=== PATIENT | female | born 1930 | race Caucasian/White ===

== ENCOUNTER 2017-03-23 08:41 | Outpatient (CLI) | payer MEDICARE, BC ==
--- NOTE | 2017-03-23 10:32 | CT ---
CT ABDOMEN AND PELVIS WITH AND WITHOUT IV CONTRAST: Date: 03/23/17 HISTORY: Left lower quadrant pain and hematuria. FINDINGS: There are chronic changes in the lung bases. A 1.0 cm low density lesion is seen in the left lobe of the liver anteriorly, likely cyst. The spleen, pancreas, and adrenal glands are normal. Multiple gall stones are present. There are numerous calculi in the left kidney. There is left-sided hydronephrosis due to a 13.0 mm le ft UPJ calculus. There is periureteric inflammatory change at the UPJ. There are two calculi in the u rinary bladder close to the left UVJ, close to one another, measuring 6 and 5 mm, respectively. No ca lculi seen in the right kidney or the right ureter. No right-sided hydroureteronephrosis noted. There are low density lesions in the right kidney consistent with cysts. No free air, free fluid, or lymphadenopathy seen in the abdomen or pelvis. Multiple sigmoid diverticu la are present. There are vascular calcifications without evidence of aneurysmal dilatation of the ab dominal aorta. There are degenerative changes in the spine. IMPRESSION: 1. Obstructing 13.0 mm calculus at the left ureteropelvic junction. 2. Left renal and urinary bladder calculi. 3. Cholelithiasis. 4. Right renal cysts. 5. Probable liver cyst. 6. Sigmoid diverticulosis. POS: ALEX
[2017-03-23] MEDS ORDERED: Iopamidol 370 76% 100 ML VIAL ONE (16:52)
== END 2017-03-23 08:42 | disposition home or self-care (01) ==
LOC: CT 08:41
PROVIDERS: ATTEND Urology
DX: R31.0 Gross hematuria (principal); N20.0 Calculus of kidney; N21.0 Calculus in bladder; K80.20 Calculus of gallbladder without cholecystitis without obstruction; N28.1 Cyst of kidney, acquired; K57.30 Diverticulosis of large intestine without perforation or abscess without bleeding
CPT/HCPCS: 74178

== ENCOUNTER 2017-04-04 15:56 | Outpatient (CLI) | payer MEDICARE, BC ==
[2017-04-04 16:43] LABS: Hemoglobin 16.1 g/dL (12.0-16.0); Mean Corpuscular HGB CONC 33.1 g/dL (32.0-36.0); Mean Corpuscular Hemoglobin 33.6 pg (27.0-31.0); Platelet Count 130 thou/uL (130-400); RBC Distribution Width 12.6 % (11.5-14.5); Red Blood Cell (RBC) Count 4.79 mill/uL (4.20-5.40); White Blood Cell (WBC) Count 5.7 thou/uL (4.8-10.8)
[2017-04-04 16:50] LABS: INR-International Normal Ratio 1.1; PTT 27.5 SEC (22.9-36.1)
[2017-04-04 17:03] LABS: Anion Gap 14 mmol/L (10-20); BUN (Urea Nitrogen) 20 mg/dL (9.8-20.1); Calc. Creatinine Clearance 0 mL/min (70-130); Calcium 9.3 mg/dL (7.8-10.44); Carbon Dioxide 21 mmol/L (23-31); Chloride 108 mmol/L (98-107); Estimated GFR-MDRD 55; Glucose 88 mg/dL (83-110); Potassium 4.4 mmol/L (3.5-5.1); Sodium 139 mmol/L (136-145)
--- NOTE | 2017-04-05 11:49 | EKG ---
Test Reason : Blood Pressure : / mmHG Vent. Rate : 076 BPM Atrial Rate : 018 BPM P-R Int : 000 ms QRS Dur : 144 ms QT Int : 460 ms P-R-T Axes : 103 -76 092 degrees QTc Int : 517 ms Electronic ventricular pacemaker No previous ECGs available Confirmed by DR. Nessa BE (3) on 04/05/2017 11:49:22 AM Referred By: SEEMA Confirmed By:DR. Nessa BE
== END 2017-04-04 15:57 | disposition home or self-care (01) ==
LOC: LABBT 15:56
PROVIDERS: ATTEND Urology
DX: Z01.812 Encounter for preprocedural laboratory examination (principal); Z01.810 Encounter for preprocedural cardiovascular examination; N20.2 Calculus of kidney with calculus of ureter; R31.9 Hematuria, unspecified
CPT/HCPCS: 80048; 81001; 85027; 85610; 85730; 87086; 93005; 93010

== ENCOUNTER 2017-04-12 05:50 | Day surgery (SDC) | payer MEDICARE, BC ==
[2017-04-04 16:11] VITALS: BMI 28.0
[2017-04-12] MEDS ORDERED: Fentanyl 250 MCG/5 ML VIAL ONE (06:11)
[2017-04-12] MEDS ORDERED: Iothalamate Meglumine 60% 50 ML VIAL FS ONE ×2 (06:41→07:15)
[2017-04-12] MEDS ORDERED: Furosemide 20 MG/2 ML VIAL ONE (09:10)
--- NOTE | 2017-04-12 10:24 | RAD ---
RETROGRADE IVP: Comparison: None. FINDINGS: Two fluoroscopic images demonstrate a left sided ureteral stent. There is retrograde opacification of a normal appearing intra and extra renal collecting system. IMPRESSION: Fluoroscopy as above. POS: [facility]
[2017-04-12] MEDS ORDERED: Glycopyrrolate 0.2 MG/ML 5 ML SYRINGE ONE (14:02)
[2017-04-12] MEDS ORDERED: Propofol 200 MG/20 ML VIAL ONE (14:02)
[2017-04-12] MEDS ORDERED: Ondansetron HCl/PF 4 MG/2 ML Vial ONE (14:02)
[2017-04-12] MEDS ORDERED: Dexamethasone 20 MG/5 ML VIAL ONE (14:02)
[2017-04-12] MEDS ORDERED: PHENYLEPHRINE-NS 100 MCG/ML 10 ML SYRINGE ONE (14:02)
[2017-04-12] MEDS ORDERED: Lidocaine 1% PF 5 ML VIAL ONE (14:02)
--- NOTE | 2017-04-12 15:30 | OP ---
DATE OF SERVICE: 04/12/2017 PREOPERATIVE DIAGNOSES: Left distal ureteral stone, left renal stones. POSTOPERATIVE DIAGNOSES: Passed left distal ureteral stone, left renal stones. SURGEON: Vera Lopez M.D. ANESTHESIA: General with endotracheal tube. PROCEDURE: Cystoscopy, left retrograde pyelogram, left ureteroscopy, left pyeloscopy, holmium laser lithotripsy, stone basketing, stent placement 6 x 24. SPECIMENS: Stone from the renal pelvis. ESTIMATED BLOOD LOSS: Minimal. COMPLICATIONS: None. FINDINGS: The distal stone had actually passed and so at that time, I made the decision to pursue treatment of the renal pelvic stone, knowing that it could be ball-valving requiring intervention in the near futur, Given I did not have to spend any time getting the distal stone, I proceeded to the renal pelvic stone. DESCRIPTION OF THE PROCEDURE: The patient was brought into the room by Anesthesia, laid on the table in the supine position. After receiving general anesthetic, her legs placed in position and her perineum was prepped and draped in sterile fashion with the left leg lowered and the right leg elevated. The cystoscope was placed and the bladder inspected. The left UO was intubated, and instead of having resistance when the Pollack catheter was placed, it easily passed several centimeters into the distal ureter. Retrograde pyelogram was performed and revealed no proximal filling defects. It appeared the distal large 1.5 cm stone had passed, but I wanted to confirm this with ureteroscopy. I anticipated removing stone, so I dilated the left UO at this time to a level of 12mm mercury. Then the scope was removed leaving the wire in place. The rigid ureteroscope was used to go into the ureter and evaluate for stone. No stone was present and it was easily able to get up to the level of the proximal ureter. There was some tortuosity at this level. The rigid scope could not navigate into the renal pelvis, so at this point I switched to a flexible scope. I felt it was appropriate to pursue therapy on the 2 cm renal pelvic stone, given that the system was recently dilated and would accommodate this nicely. With the safety wire in place, a second wire was placed in order to place a ureteral sheath. This was done easily, and the extra wire was removed. The flexible ureteroscope was taken up to the renal pelvis easily, where the large, 2cm stone was noted. I used holmium laser lithotripsy for the rest of the case , which lasted approximately an hour and 15 minutes of lithotripsy and stone basketing/irrigation. There was still a good amount of stone fragment left at the end, but they were all relatively small. Knowing that she recently passed 1.5 cm stone, I did not want to prolong the case further. I had already, twice taken out large fragments that actually required removing the sheath as the sheath was too small for it to pass through. These were sent for specimen. Then a final time the renal pelvis was rinsed out under negative pressure to get all the stone debris out. A few more smaller fragments were brought through the sheath. The fragments remaining did appear to be passable. So at this time, the ureteral sheath was removed and the cystoscope was back fed over the wire. The wire actually coiled in the bladder, and I lost access; it was easily replaced. So then a 6 x 24 double-J was placed over a wire with good coil visualized in the renal pelvis via fluoroscopy and a good coil visualized in the bladder via cystoscopy. A string was left intact, so the scope was broken apart carefully drained and removed, keeping the string connected and then secured to the patient's inner thigh. Patient tolerated the procedure well and was then awakened and transferred to PACU in stable condition. JUD
== END 2017-04-12 12:02 | disposition home or self-care (01) ==
LOC: SDC 05:50
PROVIDERS: ATTEND Urology
PROC: 0TC48ZZ Extirpation of Matter from Left Kidney Pelvis, Via Natural or Artificial Opening Endoscopic (ICD-10-PCS; principal; 2017-04-12)
PROC: 0T778DZ Dilation of Left Ureter with Intraluminal Device, Via Natural or Artificial Opening Endoscopic (ICD-10-PCS; 2017-04-12)
DX: N20.0 Calculus of kidney (principal); N20.1 Calculus of ureter; R31.0 Gross hematuria; M10.9 Gout, unspecified; I10 Essential (primary) hypertension; Z86.73 Personal history of transient ischemic attack (TIA), and cerebral infarction without residual deficits; Z88.0 Allergy status to penicillin; Z79.899 Other long term (current) drug therapy
CPT/HCPCS: 74420; 82365; 88300; C1758; J0690; J1100; J1940; J2001; J2405; J2704; J3010; Q9961

== ENCOUNTER 2017-04-25 10:34 | Outpatient (CLI) | payer MEDICARE, BC ==
--- NOTE | 2017-04-25 12:25 | HP ---
DATE OF ADMISSION: 04/25/2017 HISTORY OF PRESENT ILLNESS: Ms. Olya Kingston is a very pleasant 86-year-old, accompanied by her duane odom, who [facility] for evaluation of a nonhealing surgical wound of the right anterior lower leg. The patient's daughter states that Ms. Kingston underwent biopsy of a lesion of th e right anterior lower leg by Dr. Tracy. She states that the patient subsequently underwent removal of the skin carcinoma in [place] in 01/2017, after the biopsy was positive for a malignancy of th e skin. The patient's daughter states that Ms. Kingston was recently seen by Dr. Tracy and prescribed an ointment "to dry out" the non-healing surgical wound of the right anterior lower leg subsequent t o skin carcinoma removal. The patient's daughter states that Ms. Kingston was discharged by Dr. Tracy after the ointment was prescribed. Ms. Kingston was subsequently seen by Dr. Flanagan and referred to [facility] for further evaluation and treatment. PAST MEDICAL HISTORY: 1. Hypertension. 2. CVA in 2011. 3. 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 4. Gout. PAST SURGICAL HISTORY: Pacemaker placement. MEDICATIONS: 1. Metoprolol. 2. Lisinopril. 3. Tylenol as needed. ALLERGIES: PENICILLIN. SOCIAL HISTORY: The patient admits to smoking approximately 2 cigarettes per day for 4 years. The [facility] states that she stopped smoking in 1955. The patient admits to the consumption of 2 Martinis per day "forever." FAMILY HISTORY: Family history is significant for coronary artery disease. The patient's brother wa s diagnosed with coronary artery disease. Family history is negative for diabetes mellitus. PHYSICAL EXAMINATION: VITAL SIGNS: Temperature 97.5, pulse 80, respirations 18, blood pressure 139/73. GENERAL: An 86-year-old female, sitting on table in examination room, in no acute distress. HEENT: Normocephalic, atraumatic. NECK: No nuchal rigidity. CHEST: Clear to auscultation. CARDIAC: Regular rate and rhythm. ABDOMEN: Soft. EXTREMITIES: An ulceration of the right anterior lower leg is present, which measures approximately 1.9 x 1.5 cm. Necrotic and nonviable tissue present within the wound margins was debrided with an ex cisional full-thickness debridement with the use of a curette. No purulent drainage is associated wi th the wound. No erythema of the skin surrounding the wound is present. No maceration of the skin o f the periwound is noted. A dorsalis pedis pulse is palpable on the right. No significant edema of the right foot or lower leg is present on exam today. Numerous varicosities are present over the rig ht foot and lower leg. Two lesions of the periwound are also noted on exam today, the appearance of which is consistent with skin carcinoma. ASSESSMENT AND PLAN: 1. Nonhealing surgical wound of right anterior lower leg as described above. Dressing changes of Xe roform gauze and bordered gauze will be initiated today. These dressing changes are to be performed on a daily basis after cleansing and irrigation. I have recommended follow up with Dr. Tracy for ev aluation of the 2 lesions of the periwound. I have explained to the patient that definitive treatmen t will be needed for these 2 lesions if a biopsy is obtained of either one which returns positive for carcinoma. I have also explained to the patient and her daughter that the nonhealing surgical wound may also be evaluated for the possibility of recurrent or persistent skin carcinoma instead of persi stent residual carcinoma. The patient and her daughter understand and are in agreement with the [facility] treatment plan. I will see Ms. Kingston again after evaluation by Dermatology. 2. Hypertension. 3. Cerebrovascular accident in 2011. 4. History of removal of multiple skin carcinomas. 5. Gout.
[2017-04-25] MEDS ORDERED: Lidocaine 2% Jelly 5 ML TUBE ONE (19:51)
[2017-04-25] MEDS ORDERED: Sodium Chloride 0.9% 15 ML NEB ONE (19:51)
== END 2017-04-25 10:35 | disposition home or self-care (01) ==
LOC: WCC 10:34
PROVIDERS: ATTEND Family Medicine
DX: T81.89XD Other complications of procedures, not elsewhere classified, subsequent encounter (principal); I10 Essential (primary) hypertension; M10.9 Gout, unspecified; Z86.73 Personal history of transient ischemic attack (TIA), and cerebral infarction without residual deficits; Z85.828 Personal history of other malignant neoplasm of skin
CPT/HCPCS: A4218

== ENCOUNTER 2017-05-09 11:30 | Outpatient (CLI) | payer MEDICARE, BC | END 2017-05-09 11:31 | disposition home or self-care (01) | LOC: BICRAD 11:30 | PROVIDERS: ATTEND Urology | DX: N20.0 Calculus of kidney (principal); K80.80 Other cholelithiasis without obstruction | CPT/HCPCS: 74018 ==

== ENCOUNTER 2017-07-13 13:05 | Outpatient (CLI) | payer MEDICARE, BC | END 2017-07-13 13:06 | disposition home or self-care (01) | LOC: BICULT 13:05 | PROVIDERS: ATTEND Urology | DX: N13.2 Hydronephrosis with renal and ureteral calculous obstruction (principal) | CPT/HCPCS: 76770 ==

== ENCOUNTER 2017-10-19 18:29 | Inpatient (IN) | payer MEDICARE, BC ==
--- NOTE | 2017-10-19 19:23 | CT ---
CT OF THE BRAIN WITHOUT CONTRAST: 10/19/17 COMPARISON: None. HISTORY: Found unresponsive. Concern for stroke. TECHNIQUE: Multiple contiguous axial images were obtained in a CT of the brain without contrast. FINDINGS: There are scattered hypodensities in the subcortical and periventricular white matter, likely seconda ry to small vessel ischemic disease. There may be slightly increased hypodensity in the left temporal lobe compared to the right. The left middle cerebral artery is hyperdense compared to the right but this could represent vascular calcifications. There is no evidence of hydrocephalus, intracranial hem orrhage or extra-axial fluid collection. The calvarium and overlying soft tissues are unremarkable. The visualized paranasal sinuses and masto id air cells are well aerated. IMPRESSION: Possible hyperdense left MCA sign with hypodensity in the left temporal lobe. This could represent an acute MCA distribution infarction. Alternatively, this could represent vascular calcifications. An M RI of the brain may be necessary for better evaluation. POS: R[facility]ETTA
--- NOTE | 2017-10-19 19:29 | CT ---
CT CERVICAL SPINE WITHOUT CONTRAST: 10/19/17 HISTORY: Patient found down and is unresponsive. COMPARISON: None. TECHNIQUE: CT cervical spine is performed without contrast. Reformatted images are submitted for interpretation. FINDINGS: There is no craniocervical dissociation. Lateral masses of C1 and C2 as well as the facets have appro priate articulation. There are extensive degenerative changes of the posterior elements. Mild straig htening of the normal cervical lordosis may be due to patient position, muscle spasm or a cervical co llar. Vertebral body height is maintained. There is no evidence of a fracture. Odontoid process is in tact. There are varying degrees of central canal stenosis and neural foraminal narrowing. Facet hypertrophy is noted at multiple levels which compound and accentuates the foraminal stenosis. Soft tissue neck structures are unremarkable. The lung apices and upper mediastinum are unremarkable. Asymmetric prominent right jugular foramen is nonspecific. Margins are well circumscribed. IMPRESSION: 1. No cervical spine fracture. 2. Degenerative changes of the cervical spine. 3. Asymmetrically prominent right jugular foramen which is presumed to be due to the jugular vei n. Additional etiologies causing asymmetric prominence cannot be excluded and nonemergent MRI can be performed if clinically warranted. Conversely, correlation with previous head CT or cervical spine CT would be beneficial. POS: PPP
[2017-10-19 19:32] LABS: #Lymphocytes 1.6 thou/uL (1.20-3.40); #Monocytes 0.5 thou/uL (0.11-0.59); #Neutrophils 2.7 thou/uL (1.40-6.50); %Basophils 0.2 % (0.0-1.0); %Eosinophils 0.5 % (0.0-10.0); %Lymphocytes 33.9 % (21.0-51.0); %Monocytes 9.4 % (0.0-10.0); %Neutrophils 56.1 % (42.0-75.0); Hemoglobin 12.6 g/dL (12.0-16.0); Mean Corpuscular HGB CONC 32.9 g/dL (32.0-36.0); Mean Corpuscular Hemoglobin 32.7 pg (27.0-31.0); Mean Corpuscular Volume 99.2 fL (78.0-98.0); Platelet Count 211 thou/uL (130-400); RBC Distribution Width 13.3 % (11.5-14.5); Red Blood Cell (RBC) Count 3.84 mill/uL (4.20-5.40); White Blood Cell (WBC) Count 4.8 thou/uL (4.8-10.8)
--- NOTE | 2017-10-19 19:45 | CT ---
CTA OF THE HEAD AND NECK WELL CT PERFUSION 10/19/17 HISTORY: Altered mental status with left MCA distribution stroke-like symptoms and complete paralysis on the r ight side of the body. TECHNIQUE: 1. Multiple contiguous axial images were obtained in a CTA of the neck with contrast. 3D sagitta l and coronal MIP reformats were performed. 2. Multiple contiguous axial images were obtained in a CTA of the head with contrast. 3D sagitta l and coronal MIP reformats were performed. 3. A CT perfusion was performed. FINDINGS: CTA NECK: Emphysematous changes are seen in the lung apices. Atherosclerotic calcifications are seen in the aor ta. There are small bilateral pleural effusions. No soft tissue mass is seen in the neck. No cervical adenopathy is seen. Both subclavian arteries are patent without significant atherosclerotic disease. The bilateral common carotid arteries are normal in appearance without significant atherosclerotic disease. The common carotid arteries branch into normal caliber internal and external carotid arteries . No si gnificant stenosis per NASCET criteria is seen in either internal carotid artery. The carotid arterie s are tortuous bilaterally. The left vertebral artery is dominant. Both vertebral arteries are patent. The vertebral arteries for m a normal appearing basilar artery. CTA HEAD: There is abrupt termination of flow in the M1 segment of the left middle cerebral artery. There is de creased peripheral flow seen in the left MCA distribution compared to the right. No abnormality is se en in the right middle cerebral artery or in the anterior cerebral arteries. The vertebral arteries form a normal appearing basilar artery. The posterior cerebral arteries and ce rebellar arteries are patent. There is no evidence of aneurysmal dilatation, focal stenosis, or occlu pooja in the posterior circulation. CT PERFUSION: There is abnormal decreased blood volume and blood flow in the left MCA distribution. There is increa sed mean transit time. There is not significant preservation and blood volume to suggest that a signi ficant penumbra is present and this likely is a large MCA distribution evolving infarction. IMPRESSION: 1. No significant CTA neck abnormality. 2. Acute thrombus in the M1 segment of the left middle cerebral artery. 3. Evolving infarction in the left MCA distribution without significant penumbra. Dr. Domínguez notified of the findings at 7:19 p.m. on 10/19/17. POS: [facility]
[2017-10-19 19:52] LABS: ALT (SGPT) 10 U/L (8-55); AST (SGOT) 25 U/L (5-34); Albumin 3.4 g/dL (3.4-4.8); Alkaline Phosphatase 83 U/L (40-150); Anion Gap 13 mmol/L (10-20); BUN (Urea Nitrogen) 11 mg/dL (9.8-20.1); Bilirubin, Total 1.2 mg/dL (0.2-1.2); Calc. Creatinine Clearance 0 mL/min (70-130); Carbon Dioxide 22 mmol/L (23-31); Chloride 103 mmol/L (98-107); Estimated GFR-MDRD 72; Globulin 2.9 g/dL (2.4-3.5); Glucose 107 mg/dL (83-110); Potassium 4.4 mmol/L (3.5-5.1); Protein, Total 6.3 g/dL (6.0-8.3); Sodium 134 mmol/L (136-145)
[2017-10-19 19:57] LABS: CKMB 1.1 ng/mL (0-6.6); Troponin I Less than 0.010 ng/mL (< 0.028)
[2017-10-19 20:00] LABS: Bilirubin Negative (Negative); Blood, Urine Large (Negative); Clarity CLEAR (Clear); Glucose, Urine (Dipstick) Negative (Negative); Leukocyte Negative (Negative); Nitrite Negative (Negative); Protein, Urine (Dipstick) 30 mg/dL (Neg-Trace); Specific Gravity, Urine 1.038 (1.002-1.036); Urobilinogen 0.2 mg/dL (0.2-1.0)
[2017-10-19 20:03] LABS: Bacteria/HPF None Seen HPF (None Seen); Hyaline Casts/LPF 4-6 HYALINE CAST LPF (0-3 Hyaline); Pathc Cast-AUWi Flag 1.45 (0-2.49); Squamous Epithelial 0-3 HPF (0-3); WBC/HPF 0-3 HPF (0-3)
[2017-10-19 20:04] LABS: Yeast-AUWi Flag 84.6 (0-25.0)
[2017-10-19 20:11] LABS: Renal Epithelial None Seen HPF (0-3); Transitional Epithelial NONE SEEN HPF (0-3); Yeast-All Forms None Seen HPF (None Seen)
[2017-10-19] MEDS ORDERED: hydrALAZINE 20 MG/ML VIAL SLOW IVP PRN (21:25)
[2017-10-19] MEDS ORDERED: Acetaminophen 650 MG Suppository PR PRN (21:25)
[2017-10-19] MEDS ORDERED: Ondansetron HCl/PF 4 MG/2 ML Vial IVP PRN (21:25)
[2017-10-19 22:47] LABS: Troponin I Less than 0.010 ng/mL (< 0.028)
[2017-10-20 02:25] LABS: Troponin I Less than 0.010 ng/mL (< 0.028)
--- NOTE | 2017-10-20 02:46 | HP ---
TIME OF EVALUATION: 8:35 p.m. PRIMARY CARE PHYSICIAN: Dr. Shari Flanagan. CODE STATUS: DNR/DNI. This has been verified with the daughter who is a power of engineering operator and daughter's . She has stated that on previous admission, patient has stated that she does not want to be intubated and not to have any aggressive measures, no surgeries. She does agree for her mom to have medical treatment. CHIEF COMPLAINT: The patient found nonverbal with left-sided weakness. HISTORY OF PRESENT ILLNESS: This is an 87-year-old female patient with past medical history of previous stroke, also having history of hypertension, peripheral vascular disease, came to the hospital after having a new-onset left- sided weakness and aphasia. Patient was found nonverbal. Prior to this episode , the patient has had a stroke, but had no sequela. The patient was able to function and do her activities of daily living to date. The symptoms are severe , with no clear triggers, no alleviating factors. The patient follows commands ; however, she is unable to express their words that she wanted to say. REVIEW OF SYSTEMS: Unable to obtain. The patient is aphasic. PAST MEDICAL HISTORY: The patient has a history of colon dysfunction, cataracts , frequent diarrhea, hypertension, previous stroke. PAST SURGICAL HISTORY: Hysterectomy. FAMILY HISTORY: Reviewed and non contributory for current presentation. PSYCHIATRIC HISTORY: No previous psychiatric history. SOCIAL HISTORY: Former tobacco user, smoker of cigarettes, quit more than 10 years ago. No alcohol, no drugs. KNOWN ALLERGIES: PENICILLIN. REPORTED MEDICATIONS: Aspirin, lisinopril, metoprolol. PHYSICAL EXAMINATION: VITAL SIGNS: On presentation, heart rate 87, respiratory rate 24, temperature 97.6, pain 0/10, oxygen saturation 94% on room air, blood pressure was 169/76. GENERAL APPEARANCE: The patient is alert, nonverbal, in no any acute distress. HEENT: Eyes: Normal conjunctivae. Moist oral mucosa, anicteric. NECK: No JVD. RESPIRATORY: Bilateral air entry. No rales, no wheezing. Symmetric expansion. CARDIOVASCULAR: Normal rate, regular rhythm. No murmurs, no gallop. EXTREMITIES: No edema. ABDOMEN: Soft, normal bowel sounds. MUSCULOSKELETAL: Baseline range of motion and strength. No tenderness. Peripheral pulses are present. Capillary refill seems to be intact. SKIN: Warm and intact. No pallor, no rash, no redness. NEUROLOGIC: The patient has aphasia, left-sided weakness, strength is almost 1/ 5, correction is in the right side. Patient follows commands and seems to be coherent when listening to conversation, but is unable to express the words are coming to her mind. PSYCHIATRIC: Unable to explore. Patient is not in any distress. DIAGNOSTIC DATA: EKG was reviewed. The patient has undetermined rhythm that seems to be alternation between sinus rhythm and paced rhythm with a ventricular rate of 94, QRS of 70, QT corrected 477, some T-wave inversion in V3. Brain CT was done: The patient had possible hyperdense left MCA sign with hyperdensity in the left temporal lobe, this could represent an acute MCA distribution infarct. Alternatively, this could represent vascular calcifications. An MRI of the brain to be necessary for better evaluation. Cervical spine CT was done and the patient had no cervical spine fractures, degenerative changes of the cervical spine. Asymmetrical prominent right jugular foramen which is presumed to be due to the jugular vein. Additional etiologies causing asymmetric prominence, cannot be excluded and nonemergent MRI can be performed if clinically warranted correlation with previous head CT. Her cervical spine CT could be beneficial. CT angiogram showed no significant CTA neck abnormalities, acute thrombosis of the M1 segment of the left middle cerebral artery, evolving infarction of the left MCA distribution without significant new penumbra. LABORATORY DATA: Reviewed. The patient has a white count of 4.8, hemoglobin 12.6, MCV 99.2, platelet count 211,000. Sodium 134, potassium 4.4, chloride 103 , carbon dioxide 22, anion gap 13, BUN 11, creatinine 0.7, GFR 72, glucose 107, calcium 9.0, total bilirubin 1.2, AST 25, ALT 10. Troponin was negative x2. Urine was negative for infection. ASSESSMENT AND PLAN: The patient was placed in the hospital due to the following medical problems: 1. Acute left middle cerebral artery stroke, seen on the CAT scan, with total right-sided weakness and aphasia. The patient is unable to get an MRI since the patient has a pacemaker, we will consult Neurology. We will complete the stroke protocol. We will follow recommendations from Neurology for further management. 2. Uncontrolled hypertension. We will reconcile home medications, p.r.n. medication for optimal control with permissive hypertension given new stroke. 3. Hyponatremia, sodium 134. This is minimal, no need for any acute intervention. We will monitor. We will treat accordingly. 4. Mild anion gap metabolic acidosis, this is mild. No need for any acute intervention. We will monitor. We will treat accordingly. 5. Deep venous thrombosis prophylaxis. 6. History of pacemaker placement. It seems like occasionally the rhythm is paced. . MTDD
[2017-10-20 04:16] LABS: #Eosinphils 0.1 thou/uL (0.0-0.7); #Lymphocytes 2.3 thou/uL (1.20-3.40); #Monocytes 0.7 thou/uL (0.11-0.59); #Neutrophils 4.8 thou/uL (1.40-6.50); %Basophils 0.3 % (0.0-1.0); %Eosinophils 0.8 % (0.0-10.0); %Lymphocytes 29.1 % (21.0-51.0); %Monocytes 8.8 % (0.0-10.0); Hemoglobin 12.4 g/dL (12.0-16.0); Mean Corpuscular HGB CONC 33.3 g/dL (32.0-36.0); Mean Corpuscular Hemoglobin 32.9 pg (27.0-31.0); Mean Platelet Volume 10.3 fL (7.4-10.4); Platelet Count 209 thou/uL (130-400); RBC Distribution Width 13.4 % (11.5-14.5); Red Blood Cell (RBC) Count 3.76 mill/uL (4.20-5.40); White Blood Cell (WBC) Count 7.8 thou/uL (4.8-10.8)
[2017-10-20 04:31] LABS: Anion Gap 15 mmol/L (10-20); BUN (Urea Nitrogen) 9 mg/dL (9.8-20.1); Calc. Creatinine Clearance 58 mL/min (70-130); Carbon Dioxide 20 mmol/L (23-31); Cardiac Risk 2.4 (Less than 4.5); Chloride 105 mmol/L (98-107); Cholesterol 136 mg/dl (< 200 Desired); Estimated GFR-MDRD 78; Glucose 102 mg/dL (83-110); HDL Cholesterol 56 mg/dL (>60 Neg Risk); LDL Cholesterol, Calculated 66 mg/dL; Potassium 3.8 mmol/L (3.5-5.1); Sodium 136 mmol/L (136-145); Triglycerides 70 mg/dL (Less than 150)
--- NOTE | 2017-10-20 08:34 | PDOC.PN ---
- Subjective Encounter Start Date: 10/20/17 Encounter Start Time: 08:33 -: non-verbal Subjective: does close eyes, lift R arm to directions - Objective Resuscitation Status: Resuscitation Status DNR:Do Not Resuscitate MAR Reviewed: Yes Vital Signs & Weight: Vital Signs (12 hours) Temp Pulse Resp BP Pulse Ox 10/20/17 07:39 97.8 F 80 14 162/78 H 93 L 10/20/17 04:00 98.1 F 78 20 176/76 H 94 L 10/20/17 00:00 93 L 10/19/17 23:55 97.6 F 83 19 184/84 H 93 L 10/19/17 22:15 98.2 F 80 16 166/93 H 94 L Weight Weight 148 lb 6.4 oz Result Diagrams: 10/20/17 01:43 10/20/17 01:43 Additional Labs: Accuchecks 10/19/17 18:33 POC Glucose 109 Phys Exam - Physical Examination Neck: no JVD Respiratory: clear to auscultation bilateral Cardiovascular: RRR, no significant murmur Gastrointestinal: soft, non-tender, positive bowel sounds Musculoskeletal: no edema aphasia, flaccid R hemiplegia Dx/Plan (1) Cerebrovascular accident (CVA) involving left cerebral hemisphere Code(s): I63.9 - CEREBRAL INFARCTION, UNSPECIFIED Status: Acute (2) Hemiplegia affecting right dominant side Code(s): G81.91 - HEMIPLEGIA, UNSPECIFIED AFFECTING RIGHT DOMINANT SIDE Status : Acute Qualifiers: Hemiplegia type: flaccid Hemiplegia etiology: late effect of cerebrovascular disease Cerebrovascular disease type: cerebral infarction Qualified Code(s): I69.351 - Hemiplegia and hemiparesis following cerebral infarction affecting right dominant side (3) HTN (hypertension) Code(s): I10 - ESSENTIAL (PRIMARY) HYPERTENSION Status: Chronic Qualifiers: Hypertension type: essential hypertension Qualified Code(s): I10 - Essential (primary) hypertension (4) Pacemaker Code(s): Z95.0 - PRESENCE OF CARDIAC PACEMAKER Status: Chronic - Plan PT/OT cont asa pr -: prn iv meds for BP control -: speech eval, PEG? -: pronosis for recovery poor * .
[2017-10-20] MEDS ORDERED: Enoxaparin Sodium 40 MG/0.4 ML SYRINGE SC SCH (09:00)
[2017-10-20] MEDS: D5 1/2 NS w/20 mEq KCL 1,000 ML IV SCH ×2 (09:43→20:04)
[2017-10-20] MEDS: Aspirin 300 MG Suppository PR SCH (09:43)
[2017-10-20] MEDS: Enoxaparin Sodium 40 MG/0.4 ML SYRINGE SC SCH (09:43)
--- NOTE | 2017-10-21 00:31 | CON ---
DATE OF CONSULTATION: 10/20/2017 CONSULTING PHYSICIAN: Hospitalist Service. IMPRESSION: 1. Left middle cerebral artery stroke with resultant expressive aphasia and right hemiparesis. 2. Atrial fibrillation and probable cardioembolic event. 3. Pacemaker. PLAN: 1. Continue aspirin. 2. Swallow assessment and decide whether a feeding tube is necessary. 3. Probable halfway transfer. HISTORY OF PRESENT ILLNESS: Ms. Kingston is an 87-year-old woman, who came in with acute stroke sympto ms. Her CTA revealed a clot in the M1 segment on the left. Her vital signs have been stable. Her l aboratory studies were all in normal range. She is unable to give me any history. No family was vitor ilable to give me any other details. EKG showed a paced rhythm and atrial fibrillation. ALLERGIES: PENICILLIN. SOCIAL HISTORY: Unknown. FAMILY HISTORY: Unknown. REVIEW OF SYSTEMS: The patient is DNR. PHYSICAL EXAMINATION: GENERAL: She is a well-nourished elderly lady lying in bed in no acute distress. VITAL SIGNS: Blood pressure 180/61, pulse 78, respirations 24, temperature 97.7. HEENT: Pupils equal. Conjunctivae clear. Oropharynx clear. NECK: Supple. EXTREMITIES: Mild edema is present. NEUROLOGIC: She is awake and cooperative. She was able to follow simple commands. She had dense ex pressive aphasia. There is very subtle weakness of the right face. Could not get her to move the ri ght arm or leg independently. She moves the left side spontaneously. No abnormal movements were see n. Gait was not testable. SUMMARY: This is an unfortunate elderly lady who suffered a fairly significant stroke in the left an terior distribution, probably cardioembolic in origin. I agree with aspirin for now and determine wh ether a feeding tube is going to be pursued. Long-term anticoagulation would be a consideration as grayson warner
[2017-10-21] MEDS: D5 1/2 NS w/20 mEq KCL 1,000 ML IV SCH ×2 (05:21→18:00)
--- NOTE | 2017-10-21 07:34 | PDOC.PN ---
- Subjective Encounter Start Date: 10/21/17 Encounter Start Time: 07:33 Subjective: attempting to verbally respond, - Objective Resuscitation Status: Resuscitation Status DNR:Do Not Resuscitate MAR Reviewed: Yes Vital Signs & Weight: Vital Signs (12 hours) Temp Pulse Resp BP Pulse Ox 10/21/17 04:00 98.0 F 18 169/79 H 96 10/21/17 00:00 98.0 F 74 19 179/85 H 93 L 10/20/17 20:42 94 L 10/20/17 19:49 97.6 F 79 18 168/80 H 94 L Weight Admit Weight 148 lb 6.4 oz Weight 148 lb I&O: 10/20/17 10/21/17 10/22/17 06:59 06:59 06:59 Intake Total 1275 Balance 1275 Result Diagrams: 10/20/17 01:43 10/20/17 01:43 Phys Exam - Physical Examination Neck: no JVD Respiratory: clear to auscultation bilateral Cardiovascular: RRR, no significant murmur Gastrointestinal: soft, positive bowel sounds Musculoskeletal: no edema Dx/Plan (1) Cerebrovascular accident (CVA) involving left cerebral hemisphere Code(s): I63.9 - CEREBRAL INFARCTION, UNSPECIFIED Status: Acute (2) Hemiplegia affecting right dominant side Code(s): G81.91 - HEMIPLEGIA, UNSPECIFIED AFFECTING RIGHT DOMINANT SIDE Status : Acute Qualifiers: Hemiplegia type: flaccid Hemiplegia etiology: late effect of cerebrovascular disease Cerebrovascular disease type: cerebral infarction Qualified Code(s): I69.351 - Hemiplegia and hemiparesis following cerebral infarction affecting right dominant side (3) HTN (hypertension) Code(s): I10 - ESSENTIAL (PRIMARY) HYPERTENSION Status: Chronic Qualifiers: Hypertension type: essential hypertension Qualified Code(s): I10 - Essential (primary) hypertension (4) Pacemaker Code(s): Z95.0 - PRESENCE OF CARDIAC PACEMAKER Status: Chronic - Plan PT/OT cont ASA pr -: await swallowing eval -: cont iv fluids -: antihypertensives iv prn * .
[2017-10-21] MEDS: Aspirin 300 MG Suppository PR SCH (09:24)
[2017-10-21] MEDS: Enoxaparin Sodium 40 MG/0.4 ML SYRINGE SC SCH (09:24)
--- NOTE | 2017-10-21 15:48 | RAD ---
MODIFIED BARIUM SWALLOW: DATE: 10/21/17. HISTORY: Dysphagia following cerebral infarction. FINDINGS: This examination was performed in conjunction with speech pathology. Thin and thick liquid barium co nsistencies were administered during the exam. The patient does demonstrate normal formation of the bolus into the posterior pharynx. The episodes of premature spill of contrast in the vallecula were noted prior to initiation of swallowing mechanism. The patient demonstrated a couple of episodes of penetration with pudding consistent barium, and the patient demonstrated mony aspiration with honey consistency barium with an appropriate cough reflex elicited. IMPRESSION: Mony aspiration with honey consistency barium. POS: RENETTA
--- NOTE | 2017-10-21 22:18 | CON ---
DATE OF CONSULTATION: 10/21/2017 REASON FOR CONSULTATION: Requesting PEG placement. REQUESTING PHYSICIAN: Skyler Holcomb M.D. HISTORY OF PRESENT ILLNESS: Olya Kingston is an 87-year-old woman who was admitted to the hospital 2 d ays ago with acute left MCA distribution stroke resulting in expressive aphasia, right-sided hemipare sis and it appears oropharyngeal dysphagia with high risk for aspiration. She has a prior history of peripheral vascular disease and a prior stroke. She has had a hysterectomy, but no other abdominal surgeries. Her family tells me that just a couple of months ago in [place], she had an episode w hat sounds like ischemic colitis, which was managed nonoperatively, and from which she recovered fair ly well, able to progress to a normal diet prior to this presentation, but at any rate, she was admit elie to the hospital 2 days ago with expressive aphasia and right hemiparesis and was found to have a thrombus in the left cerebral hemisphere. She is also found to be in paced atrial fibrillation earli er today, modified barium swallow was performed which demonstrated mony aspiration with honey consis tencies and so PEG tube has been requested. The patient's family is on board with the idea. REVIEW OF SYSTEMS: Unable to obtain from the patient due to her expressive aphasia. PAST MEDICAL HISTORY: CVA; hypertension; peripheral vascular disease; hysterectomy; ischemic colitis , earlier this year 2017; pacemaker placement; atrial fibrillation. ALLERGIES: PENICILLIN. OUTPATIENT MEDICATIONS: Aspirin, lisinopril, and metoprolol. SOCIAL HISTORY: She is a former smoker. No alcohol or drug abuse. FAMILY HISTORY: Noncontributory. PHYSICAL EXAMINATION: VITAL SIGNS: Temperature 97.8, pulse 88, blood pressure 180/82, 94% oxygen saturation on room air. GENERAL: An 87-year-old woman lying in bed comfortably in no distress. MENTAL: She is alert. She responds to voice. She attempts to answer questions, but due to expressi ve aphasia, it is unclear what her level of understanding is. EYES: No scleral icterus. Extraocular movements intact. SKIN: No jaundice. No scars to the left upper quadrant of the abdomen. ENT: Mucous membranes moist, no oral lesions. LYMPH: No submandibular, supraclavicular lymphadenopathy. THYROID: Nontender to palpation. HEART: Regular rate and rhythm. LUNGS: Clear to auscultation bilaterally. ABDOMEN: Nondistended. Bowel sounds present, soft, nontender to palpation throughout. No scars in the left upper quadrant. EXTREMITIES: No peripheral edema. VESSELS: Radial pulses 2+ bilaterally. NEUROLOGICAL: She has right-sided hemiparesis and expressive aphasia. LABORATORY STUDIES: WBC 7.8, hemoglobin 12.4, platelets 209. Sodium 136, potassium 3.8, BUN 9, crea tinine 0.71. Troponin negative x3. IMAGING STUDIES: Modified barium swallow from earlier today demonstrated mony aspiration with honey consistency. CTA of the head and neck from presentation two days ago demonstrated acute thrombus in the M1 segment of the left middle cerebral artery and evolving infarction in the left MCA distributi on without significant penumbra. ASSESSMENT AND PLAN: Oropharyngeal dysphagia, following stroke. The patient has clear evidence of a spiration with honey consistencies on a modified barium swallow. I had a long discussion with the haleigh pena regarding the potential benefits and also the risks of PEG tube placement. I do feel this is ce rtainly a reasonable option for delivery of nutrition, fluids and medications. I see no contraindica tion to going forward. We did discuss risks which would include infection, bleeding, perforated visc us, surgery or even . In the end, everyone is in agreement. We will plan for PEG tube placemen t tomorrow morning. We will hold her morning Lovenox dose in anticipation of the procedure. Thank you for the consultation. Please call any time with questions or concerns.
[2017-10-22] MEDS: D5 1/2 NS w/20 mEq KCL 1,000 ML IV SCH ×2 (04:13→17:39)
[2017-10-22] MEDS: Aspirin 300 MG Suppository PR SCH (09:22)
[2017-10-22] MEDS ORDERED: Levofloxacin 500 mg/D5W 100 ml Premix Bag ONE (09:50)
[2017-10-22] MEDS ORDERED: Clindamycin/D5W 900 mg/50 ml Premix Bag ONE (09:51)
[2017-10-22] MEDS ORDERED: Promethazine HCl 25 MG/ML VIAL SLOW IVP PRN (10:15)
[2017-10-22] MEDS ORDERED: Ondansetron HCl/PF 4 MG/2 ML Vial IVP PRN (10:15)
[2017-10-22] MEDS ORDERED: Promethazine HCl 25 MG/ML VIAL IM PRN (10:15)
--- NOTE | 2017-10-22 12:44 | OP ---
DATE OF PROCEDURE: 10/22/2017 GASTROINTESTINAL ENDOSCOPY NOTE SURGEON: Lambert Duncan M.D. RESIDENTIAL FRAMING CARPENTER SURGEON: None. PROCEDURE PERFORMED: Esophagogastroduodenoscopy with PEG tube placement. INDICATION: Oropharyngeal dysphagia following stroke. MEDICATIONS: 1. See anesthesia record. 2. Clindamycin 900 mg IV plus levofloxacin 500 mg IV for enriqueta-procedural antibiotic prophylaxis. FINDINGS: After discussion of the risks, benefits and alternatives of the procedure, informed consen t was obtained and witnessed. Pre-endoscopic cardiopulmonary examination was satisfactory. Timeout was performed before sedation was achieved. Sedation was achieved with anesthesia assistance in the endoscopy unit. The patient was placed in the supine position. A Pentax adult upper endoscope was p laced into the oropharynx and passed through the cricopharyngeus under direct visualization. The eso phageal mucosa appeared normal throughout. The endoscope was advanced into the stomach. Forward and retroflexed views of the entire gastric mucosa were obtained. The gastric mucosa appeared normal. The endoscope was advanced through the pylorus and into the first and second portions of the duodenum . In the duodenal bulb and second portion of the duodenum that, there was erosive duodenitis. There were multiple very small superficial clean based erosions with no evidence of bleeding. The endosco pe was withdrawn back into the stomach. Using one-to-one pressure and transillumination methods, a s uitable site for PEG tube placement was located in the left upper quadrant. The site was prepped and draped in a sterile fashion and then anesthetized with subcutaneous lidocaine. A 1 cm vertical inci pooja was made. The introducer needle and catheter were then introduced transcutaneously into the gas tric lumen. The wire was passed through the catheter and grasped with the snare and removed out of t he patient's mouth. A 20-Haitian traction PEG tube was then pulled into place without difficulty in t he standard fashion. The endoscope was passed back down into the stomach for examination of the inte rnal bumper which appeared to be in good position. The external bumper clamp and external ports were all affixed to the PEG tube. The external bumper was affixed at a distance of 2 cm. There was mini mal bleeding from the site during the procedure, which had slowed down. At the end, the procedure wa s then completed. The patient tolerated the procedure well. There were no immediate post-procedure complications. IMPRESSION: 1. Successful placement of 20-Haitian traction PEG tube to the left upper quadrant, with external bum per at 2 cm. 2. Erosive duodenitis without bleeding. RECOMMENDATIONS: 1. May use the PEG tube for medications now. 2. May use the PEG tube for feeds in 4 hours. 3. Flush tube regularly. 4. Daily PPI for 1 month. 5. I will plan to come by tomorrow to check on the PEG site and likely loosen the external bumper.
[2017-10-22] MEDS ORDERED: Clindamycin/D5W 900 MG in Premix Bag 1 BAG IVPB SCH (13:30)
[2017-10-22] MEDS ORDERED: Lidocaine 1% PF 5 ML VIAL ONE (14:49)
[2017-10-22] MEDS ORDERED: PROPOFOL 200 MG/20 ML VIAL ONE (14:49)
--- NOTE | 2017-10-22 16:08 | PDOC.PN ---
- Subjective Encounter Start Date: 10/22/17 Encounter Start Time: 16:06 -: old records requested/rev Subjective: s/p PEG placement.groggy and mumbles responses -: no acute vents ON - Objective Resuscitation Status: Resuscitation Status DNR:Do Not Resuscitate MAR Reviewed: Yes Vital Signs & Weight: Vital Signs (12 hours) Temp Pulse Resp BP Pulse Ox 10/22/17 11:45 97.9 F 72 20 165/74 H 92 L 10/22/17 07:48 98.7 F 80 16 144/90 H 95 Weight Admit Weight 148 lb 6.4 oz Weight 142 lb 3.2 oz I&O: 10/21/17 10/22/17 10/23/17 06:59 06:59 06:59 Intake Total 1275 988 Balance 1275 988 Result Diagrams: 10/20/17 01:43 10/20/17 01:43 Phys Exam - Physical Examination Constitutional: NAD HEENT: PERRLA, moist MMs, sclera anicteric, oral pharynx no lesions Neck: no JVD Respiratory: no wheezing, no rales, no rhonchi Cardiovascular: no significant murmur, irregular Gastrointestinal: soft, non-tender, no distention Musculoskeletal: no edema, pulses present right hemiparesis Psychiatric: normal affect Skin: no rash Dx/Plan (1) Cerebrovascular accident (CVA) involving left cerebral hemisphere Code(s): I63.9 - CEREBRAL INFARCTION, UNSPECIFIED Status: Acute Comment: Chelsi embolic (2) Aphasia as late effect of cerebrovascular accident Code(s): I69.320 - APHASIA FOLLOWING CEREBRAL INFARCTION Status: Acute (3) Dysphagia as late effect of cerebrovascular accident (CVA) Code(s): I69.391 - DYSPHAGIA FOLLOWING CEREBRAL INFARCTION Status: Acute (4) Hemiplegia affecting right dominant side Code(s): G81.91 - HEMIPLEGIA, UNSPECIFIED AFFECTING RIGHT DOMINANT SIDE Status : Acute Qualifiers: Hemiplegia type: flaccid Hemiplegia etiology: late effect of cerebrovascular disease Cerebrovascular disease type: cerebral infarction Qualified Code(s): I69.351 - Hemiplegia and hemiparesis following cerebral infarction affecting right dominant side (5) HTN (hypertension) Code(s): I10 - ESSENTIAL (PRIMARY) HYPERTENSION Status: Chronic Qualifiers: Hypertension type: essential hypertension Qualified Code(s): I10 - Essential (primary) hypertension (6) Pacemaker Code(s): Z95.0 - PRESENCE OF CARDIAC PACEMAKER Status: Chronic (7) Chronic atrial fibrillation Code(s): I48.2 - CHRONIC ATRIAL FIBRILLATION Status: Chronic - Plan PT/OT, speech therapy, out of bed/ambulate, DVT proph w/SCDs discussed w neurology regarding oral anticoag. -: will choose ASA given advanced age and bleeding risk. -: TF in next few hours once PEG ready to use. -: start PO meds via peg.HD stable -: Rehab placement when accepted * . Review of Systems - Review of Systems Other: Limited due to somnolence and expressive aphasia - Medications/Allergies Allergies/Adverse Reactions: Allergies Allergy/AdvReac Type Severity Reaction Status Date / Time Penicillins Allergy Verified 04/04/17 16:10 Medications: Current Medications Acetaminophen (Tylenol) 650 mg DC Q4H PRN PRN Reason: Headache/Fever or Pain Aspirin (Aspirin) 300 mg DC DAILY [facility] Last Admin: 10/22/17 09:22 Dose: Not Given Enoxaparin Sodium (Lovenox) 40 mg SC 0900 [facility] Last Admin: 10/21/17 09:24 Dose: 40 mg Hydralazine HCl (Apresoline) 10 mg SLOW IVP Q4H PRN PRN Reason: BP > 220/110 Potassium Chloride/Dextrose/Sod Cl (D5 1/2 Ns W/20 Meq Kcl) 1,000 mls @ 100 mls /hr IV .Q10H [facility] Last Admin: 10/22/17 04:13 Dose: 1,000 mls Clindamycin Phosphate/Dextrose (900 mg/ Device) 50 mls @ 100 mls/hr IVPB ONCALL -OR [facility] Levofloxacin 500 mg/ Device 100 mls @ 100 mls/hr IVPB ONCALL-OR [facility] Ondansetron HCl (Zofran) 4 mg IVP Q6H PRN PRN Reason: Nausea/Vomiting Pantoprazole Sodium (Protonix) 40 mg PER TUBE DAILY [facility] Sodium Chloride (Flush - Normal Saline) 10 ml IVF PRN PRN PRN Reason: Saline Flush
[2017-10-23] MEDS: D5 1/2 NS w/20 mEq KCL 1,000 ML IV SCH ×2 (06:16→08:59)
[2017-10-23] MEDS: Aspirin 300 MG Suppository PR SCH (08:13)
[2017-10-23] MEDS: Enoxaparin Sodium 40 MG/0.4 ML SYRINGE SC SCH ×2 (08:14→09:14)
[2017-10-23] MEDS: Pantoprazole 40 MG GRANULES PACKET PER TUBE SCH (08:14)
[2017-10-23] MEDS: Aspirin 325 MG TAB PER TUBE SCH (08:59)
[2017-10-23] MEDS ORDERED: Sodium Chloride 0.9% 1,000 ML IV SCH (09:00)
[2017-10-23] MEDS: Lisinopril 5 MG TAB PER TUBE SCH ×2 (09:14→21:47)
--- NOTE | 2017-10-23 10:22 | PRG ---
DATE OF SERVICE: 10/23/2017 GI INPATIENT DAILY PROGRESS NOTE I came by to check on Ms. Kingston and her PEG site today. She is tolerating tube feeds. She has not been indicating any pain at the site. The PEG site looks good. There is no surrounding erythema, no exudate, no bleeding. I did loosen the external bumper to 3.5 cm, which I think will be a good dist ance for her. GI will sign off at this time, but please call back with any questions or concerns.
--- NOTE | 2017-10-23 12:04 | PDOC.PN ---
- Subjective Encounter Start Date: 10/23/17 Encounter Start Time: 12:03 Subjective: RN reports that pt had over 1000 ml uine retention -: no events overnight.care discussed w daughter at bedside - Objective Resuscitation Status: Resuscitation Status DNR:Do Not Resuscitate MAR Reviewed: Yes Vital Signs & Weight: Vital Signs (12 hours) Temp Pulse Resp BP BP Pulse Ox 10/23/17 09:14 84 10/23/17 08:00 97.9 F 84 20 156/87 H 99 10/23/17 04:00 99.4 F 88 20 139/79 100 Weight Admit Weight 148 lb 6.4 oz Weight 149 lb 2 oz I&O: 10/22/17 10/23/17 10/24/17 06:59 06:59 06:59 Intake Total 988 590 Output Total 1700 Balance 988 590 -1700 Result Diagrams: 10/20/17 01:43 10/20/17 01:43 Additional Labs: Laboratory Tests 10/19/17 10/19/17 10/20/17 19:19 22:17 01:43 Troponin I Less than 0.010 Less than 0.010 Less than 0.010 Phys Exam - Physical Examination Constitutional: NAD HEENT: PERRLA, moist MMs, sclera anicteric, oral pharynx no lesions Neck: no nodes, no JVD, supple, full ROM Respiratory: no wheezing, no rales, no rhonchi, clear to auscultation bilateral Cardiovascular: RRR, no significant murmur, no rub Gastrointestinal: soft, non-tender, no distention, positive bowel sounds Musculoskeletal: no edema, pulses present Neurological: non-focal, normal sensation, moves all 4 limbs Psychiatric: normal affect, A&O x 3 Skin: no rash Dx/Plan (1) Cerebrovascular accident (CVA) involving left cerebral hemisphere Code(s): I63.9 - CEREBRAL INFARCTION, UNSPECIFIED Status: Acute Comment: Chelsi embolic (2) Aphasia as late effect of cerebrovascular accident Code(s): I69.320 - APHASIA FOLLOWING CEREBRAL INFARCTION Status: Acute (3) Urinary retention Code(s): R33.9 - RETENTION OF URINE, UNSPECIFIED Status: Acute (4) Dysphagia as late effect of cerebrovascular accident (CVA) Code(s): I69.391 - DYSPHAGIA FOLLOWING CEREBRAL INFARCTION Status: Acute (5) Hemiplegia affecting right dominant side Code(s): G81.91 - HEMIPLEGIA, UNSPECIFIED AFFECTING RIGHT DOMINANT SIDE Status : Acute Qualifiers: Hemiplegia type: flaccid Hemiplegia etiology: late effect of cerebrovascular disease Cerebrovascular disease type: cerebral infarction Qualified Code(s): I69.351 - Hemiplegia and hemiparesis following cerebral infarction affecting right dominant side (6) HTN (hypertension) Code(s): I10 - ESSENTIAL (PRIMARY) HYPERTENSION Status: Chronic Qualifiers: Hypertension type: essential hypertension Qualified Code(s): I10 - Essential (primary) hypertension (7) Pacemaker Code(s): Z95.0 - PRESENCE OF CARDIAC PACEMAKER Status: Chronic (8) Chronic atrial fibrillation Code(s): I48.2 - CHRONIC ATRIAL FIBRILLATION Status: Chronic - Plan plan discussed w/ family, DVT proph w/lovenox, DVT proph w/SCDs Cont ASA.add statin via PEG -: TF started -: Straight In and OUt Cath for now. w frequent bladder scans -: if continues to have urinary retention-will do [place] -: restart home meds Via PEg as below * .Rehab vs SNIF when approved based on Pt recs Review of Systems - Review of Systems Other: limited ROS due to aphasia - Medications/Allergies Allergies/Adverse Reactions: Allergies Allergy/AdvReac Type Severity Reaction Status Date / Time Penicillins Allergy Verified 04/04/17 16:10 Medications: Current Medications Acetaminophen (Tylenol) 650 mg PA Q4H PRN PRN Reason: Headache/Fever or Pain Aspirin (Aspirin) 325 mg PER TUBE DAILY [facility] Last Admin: 10/23/17 08:59 Dose: Not Given Atorvastatin Calcium (Lipitor) 20 mg PER TUBE [facility] Enoxaparin Sodium (Lovenox) 40 mg SC 0900 [facility] Last Admin: 10/23/17 09:14 Dose: 40 mg Hydralazine HCl (Apresoline) 10 mg SLOW IVP Q4H PRN PRN Reason: BP > 220/110 Clindamycin Phosphate/Dextrose (900 mg/ Device) 50 mls @ 100 mls/hr IVPB ONCALL -OR [facility] Levofloxacin 500 mg/ Device 100 mls @ 100 mls/hr IVPB ONCALL-OR [facility] Lisinopril (Zestril) 5 mg PER TUBE BID [facility] Last Admin: 10/23/17 09:14 Dose: 5 mg Ondansetron HCl (Zofran) 4 mg IVP Q6H PRN PRN Reason: Nausea/Vomiting Pantoprazole Sodium (Protonix) 40 mg PER TUBE DAILY [facility] Last Admin: 10/23/17 08:14 Dose: 40 mg Sodium Chloride (Flush - Normal Saline) 10 ml IVF PRN PRN PRN Reason: Saline Flush
[2017-10-23 15:51] LABS: Bilirubin Negative (Negative); Blood, Urine Large (Negative); Clarity TURBID (Clear); Glucose, Urine (Dipstick) Negative (Negative); Leukocyte Large (Negative); Nitrite Negative (Negative); Protein, Urine (Dipstick) Trace mg/dL (Neg-Trace); Specific Gravity, Urine 1.012 (1.002-1.036)
[2017-10-23 15:54] LABS: Hyaline Casts/LPF 4-6 HYALINE CAST LPF (0-3 Hyaline); Pathc Cast-AUWi Flag 0.58 (0-2.49); Squamous Epithelial 0-3 HPF (0-3)
[2017-10-23 15:55] LABS: Yeast-AUWi Flag 38.3 (0-25.0)
[2017-10-23 16:02] LABS: Bacteria/HPF 2+ HPF (None Seen); Yeast-All Forms None Seen HPF (None Seen)
--- NOTE | 2017-10-23 18:49 | PDOC.EVN ---
Event Note - Event Note Event Note: care discussed with daughter Ms. jean-baptiste at bedside. I Updated prognosis .Daughter understands that her prognosis for meaningful recovery towards an active life is poor. Rehab and SNIF options discussed and orders updated in chart per her request Code status discussed again and pt is to remian DNR as per her expressed wishes earlier to stroke. discussed anticoagulation. Pt has h/o embolic stroke and was on Eliquis but was taken off of it earlier this year due to fall risk and hematuria has been approved to be off of Eliquis by urology Dr. Lopez..Sees Dr. Jane in cardiology clinic. I updated daughter that this new stroke is indeed another embolic stroke and now pt has new diagnosis of a-fib which puts her at an increased risk of recurrent stroke. Risk and benefits of Oral retirement anticoagulation were discussed and it was decided that we will get Cardiology on board to help with this decision.Reported that i have talked to neurologist Dr. qureshi who recommended that Pt be on ASA only for secd stroke prophylaxis due to risk of bleeding Will consult Cardiology.Cont ASA for now. Total time spent in ACP discussion 18 minutes.
[2017-10-23] MEDS: Atorvastatin Calcium 20 MG TAB PER TUBE SCH (21:47)
--- NOTE | 2017-10-24 07:36 | CON ---
DATE OF CONSULTATION: 10/23/2017 HISTORY OF PRESENT ILLNESS: The patient is an unfortunate 87-year-old woman who presented with altered mental status. The patient has a previous history of atrial fibrillation and a cerebrovascular accident. She has also previously had placement of electronic pacemaker. The patient was in her usual state of health when she suddenly developed left-sided weakness and could not speak. The patient presented to the emergency room and was admitted for further evaluation. The patient is unable to give any coherent history. PAST MEDICAL HISTORY: 1. Cerebrovascular accident. 2. Hypertension. 3. Cataracts. PAST SURGICAL HISTORY: Hysterectomy. SOCIAL HISTORY: Nonsmoker. ALLERGIES: PENICILLIN. MEDICATIONS ON ADMISSION: Lisinopril 20 daily, metoprolol 50 XL daily, aspirin daily. REVIEW OF SYSTEMS: Not obtainable. PHYSICAL EXAMINATION: GENERAL: Aphasic woman who is minimally responsive. VITAL SIGNS: Blood pressure 157/70. NECK: No jugular venous distention. LUNGS: Clear to auscultation. HEART: Irregular rate and rhythm with a normal S1, S2. GASTROINTESTINAL: Abdomen is distended with a PEG tube. EXTREMITIES: Showed trace edema. LABORATORY: Sodium 136, potassium 3.8, chloride 105, bicarbonate 20, BUN 9, creatinine 0.71, troponin less than 0.01. White blood cell count is 7.8, hemoglobin 12.4, hematocrit 37.3 and platelets are 209,000. EKG revealed atrial fibrillation with an electronic ventricular pacemaker. IMPRESSION: 1. Large cerebrovascular accident. 2. Permanent atrial fibrillation. 3. History of pacemaker placement. 4. Hypertension. This unfortunate woman has suffered a large cerebrovascular accident. She is minimally responsive. The patient had declined to be on anticoagulation therapy after having difficulty with Eliquis. The patient has undergone a Neurology evaluation. From a cardiac standpoint, the patient needs to be on chronic anticoagulation therapy. Further recommendations will follow. MTDD
[2017-10-24] MEDS: Enoxaparin Sodium 40 MG/0.4 ML SYRINGE SC SCH (09:23)
[2017-10-24] MEDS: Aspirin 325 MG TAB PER TUBE SCH (09:23)
[2017-10-24] MEDS: Lisinopril 5 MG TAB PER TUBE SCH ×2 (09:23→21:43)
[2017-10-24] MEDS: Pantoprazole 40 MG GRANULES PACKET PER TUBE SCH (09:24)
[2017-10-24] MEDS: Metoprolol Tartrate 100 MG TAB PER TUBE SCH (09:30)
--- NOTE | 2017-10-24 12:59 | PDOC.PN ---
- Subjective Encounter Start Date: 10/24/17 Encounter Start Time: 12:57 Subjective: more awake today ,mubmles response to Qs -: follows simple directions .not able to move Right side -: care discussed w Daughter at bedside - Objective Resuscitation Status: Resuscitation Status DNR:Do Not Resuscitate MAR Reviewed: Yes Vital Signs & Weight: Vital Signs (12 hours) Temp Pulse Pulse Pulse Resp BP BP 10/24/17 12:00 97.6 F 79 20 10/24/17 09:23 96 158/74 H 10/24/17 08:50 104 H 99 175/77 H 10/24/17 07:59 98.0 F 96 16 10/24/17 04:00 98.9 F 100 24 H BP BP BP Pulse Ox 10/24/17 12:00 155/71 H 94 L 10/24/17 09:23 10/24/17 08:50 169/75 H 10/24/17 07:59 158/74 H 92 L 10/24/17 04:00 157/89 H 99 Weight Admit Weight 148 lb 6.4 oz Weight 144 lb 14.4 oz I&O: 10/23/1718 10/25/17 06:59 06:59 06:59 Intake Total 590 805 30 Output Total 2200 Balance 590 -1395 30 Result Diagrams: 10/20/17 01:43 10/20/17 01:43 Phys Exam - Physical Examination Constitutional: NAD awake HEENT: PERRLA, moist MMs, sclera anicteric, oral pharynx no lesions Neck: no nodes, no JVD, supple, full ROM Respiratory: no wheezing, no rales, no rhonchi, clear to auscultation bilateral Cardiovascular: RRR, no significant murmur Gastrointestinal: soft, non-tender, no distention, positive bowel sounds PEG in place Musculoskeletal: no edema, pulses present Right hemiparesis,aphasia Psychiatric: normal affect Skin: no rash Dx/Plan (1) UTI (urinary tract infection) Status: Acute Qualifiers: Hematuria presence: without hematuria Comment: gaboley due to urinary retention (2) Cerebrovascular accident (CVA) involving left cerebral hemisphere Code(s): I63.9 - CEREBRAL INFARCTION, UNSPECIFIED Status: Acute Comment: Chelsi embolic (3) Aphasia as late effect of cerebrovascular accident Code(s): I69.320 - APHASIA FOLLOWING CEREBRAL INFARCTION Status: Acute (4) Urinary retention Code(s): R33.9 - RETENTION OF URINE, UNSPECIFIED Status: Acute (5) Dysphagia as late effect of cerebrovascular accident (CVA) Code(s): I69.391 - DYSPHAGIA FOLLOWING CEREBRAL INFARCTION Status: Acute Comment: s/p PEG placement (6) Hemiplegia affecting right dominant side Code(s): G81.91 - HEMIPLEGIA, UNSPECIFIED AFFECTING RIGHT DOMINANT SIDE Status : Acute Qualifiers: Hemiplegia type: flaccid Hemiplegia etiology: late effect of cerebrovascular disease Cerebrovascular disease type: cerebral infarction Qualified Code(s): I69.351 - Hemiplegia and hemiparesis following cerebral infarction affecting right dominant side (7) HTN (hypertension) Code(s): I10 - ESSENTIAL (PRIMARY) HYPERTENSION Status: Chronic Qualifiers: Hypertension type: essential hypertension Qualified Code(s): I10 - Essential (primary) hypertension (8) Pacemaker Code(s): Z95.0 - PRESENCE OF CARDIAC PACEMAKER Status: Chronic (9) Chronic atrial fibrillation Code(s): I48.2 - CHRONIC ATRIAL FIBRILLATION Status: Chronic - Plan plan discussed w/ family, PT/OT, DVT proph w/SCDs add empiric antibiotics. send urine for Cx -: h/o hematuria on anticaog in past-will consult urology for retention -: cont ASA,statin for now -: BP higher.restart Metoprolol vis PEG. cont lisinopril -: Rehab eval in progress * .Cardiology recs requested w regards to need for AC for secd stroke prevention with A-fib and new embolic stroke * am labs Review of Systems - Review of Systems Other: limited ROS due to aphasia from stroke - Medications/Allergies Allergies/Adverse Reactions: Allergies Allergy/AdvReac Type Severity Reaction Status Date / Time Penicillins Allergy Verified 04/04/17 16:10 Medications: Current Medications Acetaminophen (Tylenol) 650 mg [place] Q4H PRN PRN Reason: Headache/Fever or Pain Aspirin (Aspirin) 325 mg PER TUBE DAILY [facility] Last Admin: 10/24/17 09:23 Dose: 325 mg Atorvastatin Calcium (Lipitor) 20 mg PER TUBE HS [facility] Last Admin: 10/23/17 21:47 Dose: 20 mg Enoxaparin Sodium (Lovenox) 40 mg SC 0900 [facility] Last Admin: 10/24/17 09:23 Dose: 40 mg Hydralazine HCl (Apresoline) 10 mg SLOW IVP Q4H PRN PRN Reason: BP > 220/110 Clindamycin Phosphate/Dextrose (900 mg/ Device) 50 mls @ 100 mls/hr IVPB ONCALL -OR [facility] Levofloxacin 500 mg/ Device 100 mls @ 100 mls/hr IVPB ONCALL-OR [facility] Levofloxacin 500 mg/ Device 100 mls @ 100 mls/hr IVPB Q24HR [facility] Lisinopril (Zestril) 5 mg PER TUBE BID [facility] Last Admin: 10/24/17 09:23 Dose: 5 mg Metoprolol Tartrate (Lopressor) 50 mg PER TUBE DAILY [facility] Last Admin: 10/24/17 09:30 Dose: 50 mg Ondansetron HCl (Zofran) 4 mg IVP Q6H PRN PRN Reason: Nausea/Vomiting Pantoprazole Sodium (Protonix) 40 mg PER TUBE DAILY [facility] Last Admin: 10/24/17 09:24 Dose: 40 mg Sodium Chloride (Flush - Normal Saline) 10 ml IVF PRN PRN PRN Reason: Saline Flush
--- NOTE | 2017-10-24 15:35 | PDOC.CTH ---
Cardiology Progress Note - Subjective Pt. seen and eval. by me. The family is at the bedside. No new events over night. She remains in Afib. - ROS not able to obtain ROS - Objective Vital Signs Temp Pulse Pulse Pulse Resp BP BP 10/24/17 12:00 97.6 F 79 20 10/24/17 09:23 96 158/74 H 10/24/17 08:52 10/24/17 08:50 104 H 99 175/77 H 10/24/17 07:59 98.0 F 96 16 10/24/17 04:00 98.9 F 100 24 H BP BP BP Pulse Ox 10/24/17 12:00 155/71 H 94 L 10/24/17 09:23 10/24/17 08:52 92 L 10/24/17 08:50 169/75 H 10/24/17 07:59 158/74 H 92 L 10/24/17 04:00 157/89 H 99 Admit Weight 148 lb 6.4 oz Weight 144 lb 14.4 oz 10/23/17 10/24/17 10/25/17 06:59 06:59 06:59 Intake Total 590 805 30 Output Total 2200 760 Balance 590 -1395 -730 - Physical Examination General/Neuro: other: (awake. Seems to understand somethings. Family states she has said some words.) Neck: carotid US brisk, no JVD present Lungs: CTA Heart: other: (irreg.) Abdomen: no HSM - Telemetry Telemetry Rhythm: Afib. occasional pacing. - Labs Result Diagrams: 10/20/17 01:43 10/20/17 01:43 Troponin/CKMB CK-MB (CK-2) 1.1 ng/mL (0-6.6) 10/19/17 19:19 Troponin I Less than 0.010 ng/mL (< 0.028) 10/20/17 01:43 - Assessment/Plan 1. S/P CVA, likely due to atrial fibrillation. I would advise an OAC if the hematuria is not a significant proble. 2. Atrial fibrillation. Rate controlled.Coumadin may be the best choice for OAC as it is reversible. 3. HTN: stable. 4.ETOH abuse: watch for withdrawals. %. s/p pacemaker. Last check approx. 6 months ago indicated about 1 tear to CARLOS. Will interrogate and also look for Afib burden if this has not already been done.
[2017-10-24] MEDS: Atorvastatin Calcium 20 MG TAB PER TUBE SCH (21:43)
[2017-10-25 06:00] VITALS: BMI 24.3
[2017-10-25] MEDS ORDERED: Levofloxacin 250 MG/10 ML PER TUBE SCH (06:00)
[2017-10-25 06:41] LABS: #Eosinphils 0.4 thou/uL (0.0-0.7); #Lymphocytes 1.7 thou/uL (1.20-3.40); #Monocytes 0.8 thou/uL (0.11-0.59); #Neutrophils 3.8 thou/uL (1.40-6.50); %Basophils 0.2 % (0.0-1.0); %Eosinophils 5.9 % (0.0-10.0); %Lymphocytes 24.6 % (21.0-51.0); %Monocytes 11.9 % (0.0-10.0); %Neutrophils 57.4 % (42.0-75.0); Hemoglobin 11.9 g/dL (12.0-16.0); Mean Corpuscular HGB CONC 31.7 g/dL (32.0-36.0); Mean Corpuscular Volume 97.9 fL (78.0-98.0); Mean Platelet Volume 9.5 fL (7.4-10.4); Platelet Count 202 thou/uL (130-400); RBC Distribution Width 12.9 % (11.5-14.5); Red Blood Cell (RBC) Count 3.85 mill/uL (4.20-5.40); White Blood Cell (WBC) Count 6.7 thou/uL (4.8-10.8)
[2017-10-25 06:49] LABS: Anion Gap 11 mmol/L (10-20); BUN (Urea Nitrogen) 16 mg/dL (9.8-20.1); Calc. Creatinine Clearance 57 mL/min (70-130); Calcium 8.3 mg/dL (7.8-10.44); Carbon Dioxide 23 mmol/L (23-31); Chloride 103 mmol/L (98-107); Estimated GFR-MDRD 78; Glucose 138 mg/dL (83-110); Magnesium 1.5 mg/dL (1.6-2.6); Phosphorus 2.8 mg/dL (2.3-4.7); Potassium 3.8 mmol/L (3.5-5.1); Sodium 133 mmol/L (136-145)
--- NOTE | 2017-10-25 09:22 | PDOC.CTH ---
<Judy Velasco - Last Filed: 10/25/17 09:36> Cardiology Progress Note - Subjective The pt seen and examined. No overnight events. Unable to communicate well due to dysphasia 2/2 CVA. - Objective Vital Signs Temp Pulse Resp BP Pulse Ox 10/25/17 08:00 99.0 F 81 16 160/74 H 93 L 10/25/17 04:00 99.0 F 89 19 171/77 H 94 L 10/25/17 00:00 98.2 F 80 18 165/78 H 94 L 10/24/17 21:43 74 95 Admit Weight 148 lb 6.4 oz Weight 146 lb 3.2 oz 10/24/17 10/25/17 10/26/17 06:59 06:59 06:59 Intake Total 805 2466 Output Total 2200 1835 Balance -1395 631 - Physical Examination Neck: carotid US brisk Lungs: CTA Heart: other: (irregular) Abdomen: soft Extremities: other: (No edema) - Telemetry Telemetry Rhythm: Afib V paced 70-80s - Labs Result Diagrams: 10/25/17 05:49 10/25/17 05:49 Troponin/CKMB CK-MB (CK-2) 1.1 ng/mL (0-6.6) 10/19/17 19:19 Troponin I Less than 0.010 ng/mL (< 0.028) 10/20/17 01:43 - Assessment/Plan 1. S/P embolic CVA, likely due to Afib - managed by neurologist. Will start OAC , ex: Coumadin, when the hematuria is not a significant problem. 2. Chronic Afib - Rate well controlled. Coumadin may be the best choice for OAC as it is reversible. 3. HTN: stable. 4. UTI - on Antibiotics managed by PCP 5. Hx of Sustainability Roundtable PM - PM interrogation showed VVI mode with no abnormal arrhythmias. 6. ETOH abuse: watch for withdrawals. 7. Hx of hematuria on anticaog in past - MAR reviewed * Echo this admission showed EF 50-55%, mild LVH, mild dilated bilat atriums, mild AR, mod TR and MR. Review of Systems - Review of Systems Constitutional: reports: see HPI EENTM: reports: see HPI Respiratory: reports: see HPI Cardiac (ROS): reports: see HPI ABD/GI: reports: see HPI : reports: see HPI Musculoskeletal: reports: see HPI <JaneKwaku Cornel - Last Filed: 10/25/17 13:52> Cardiology Progress Note - Objective Vital Signs Temp Pulse Resp BP BP Pulse Ox 10/25/17 11:55 99.4 F 70 18 159/70 H 94 L 10/25/17 09:32 81 160/74 H 10/25/17 08:53 93 L 10/25/17 08:00 99.0 F 81 16 160/74 H 93 L 10/25/17 04:00 99.0 F 89 19 171/77 H 94 L Admit Weight 148 lb 6.4 oz Weight 146 lb 3.2 oz 10/24/17 10/25/17 10/26/17 06:59 06:59 06:59 Intake Total 805 2466 1040 Output Total 2200 1835 Balance -1273 868 8062 - Labs Result Diagrams: 10/25/17 05:49 10/25/17 05:49 Troponin/CKMB CK-MB (CK-2) 1.1 ng/mL (0-6.6) 10/19/17 19:19 Troponin I Less than 0.010 ng/mL (< 0.028) 10/20/17 01:43 - Assessment/Plan Pt. seen and eval. by me. I agree with the A/P by the [employer]IST. Will advise starting coumadin for the Afib. rate is under good control. Plan to transfer to SNU today or tomorrow. Pt. can f/u with me in 2-4 weeks, as tolerated post CVA.. Chest clear. irreg./irreg.
[2017-10-25] MEDS: Metoprolol Tartrate 100 MG TAB PER TUBE SCH (09:30)
[2017-10-25] MEDS: Lisinopril 5 MG TAB PER TUBE SCH (09:32)
[2017-10-25] MEDS: Enoxaparin Sodium 40 MG/0.4 ML SYRINGE SC SCH (09:33)
[2017-10-25] MEDS: Aspirin 325 MG TAB PER TUBE SCH (09:33)
[2017-10-25] MEDS: Pantoprazole 40 MG GRANULES PACKET PER TUBE SCH (09:34)
[2017-10-25 13:08] LABS: INR-International Normal Ratio 1.1; Prothrombin Time 14.4 SEC (12.0-14.7)
[2017-10-25] MEDS ORDERED: Warfarin Sodium 10 MG TAB PO SCH (14:00)
--- NOTE | 2017-10-25 14:02 | PDOC.PN ---
- Subjective Encounter Start Date: 10/25/17 Encounter Start Time: 14:00 Subjective: feels much better today . more awake per family -: no overnight events - Objective Resuscitation Status: Resuscitation Status DNR:Do Not Resuscitate MAR Reviewed: Yes Vital Signs & Weight: Vital Signs (12 hours) Temp Pulse Resp BP BP Pulse Ox 10/25/17 11:55 99.4 F 70 18 159/70 H 94 L 10/25/17 09:32 81 160/74 H 10/25/17 08:53 93 L 10/25/17 08:00 99.0 F 81 16 160/74 H 93 L 10/25/17 04:00 99.0 F 89 19 171/77 H 94 L Weight Admit Weight 148 lb 6.4 oz Weight 146 lb 3.2 oz I&O: 10/24/17 10/25/17 10/26/17 06:59 06:59 06:59 Intake Total 805 2466 1040 Output Total 2200 1835 Balance -4653 598 3826 Result Diagrams: 10/25/17 05:49 10/25/17 05:49 Additional Labs: Microbiology 10/23/17 15:30 Urine clean catch Urine Culture - Preliminary Presumptive Enterococcus sp. Phys Exam - Physical Examination Constitutional: NAD sitting up in bed,awake HEENT: PERRLA, moist MMs, sclera anicteric, oral pharynx no lesions Neck: no nodes, no JVD, supple, full ROM Respiratory: no wheezing, no rales, no rhonchi, clear to auscultation bilateral Cardiovascular: no significant murmur, irregular Gastrointestinal: soft, non-tender, no distention, positive bowel sounds PEG in place Musculoskeletal: no edema, pulses present R hemiparesis, apahsia Psychiatric: normal affect Skin: no rash Dx/Plan (1) UTI (urinary tract infection) Status: Acute Qualifiers: Hematuria presence: without hematuria Comment: gaboley due to urinary retention.Enterococcus in urine Cx (2) Cerebrovascular accident (CVA) involving left cerebral hemisphere Code(s): I63.9 - CEREBRAL INFARCTION, UNSPECIFIED Status: Acute Comment: Chelsi embolic (3) Aphasia as late effect of cerebrovascular accident Code(s): I69.320 - APHASIA FOLLOWING CEREBRAL INFARCTION Status: Acute (4) Urinary retention Code(s): R33.9 - RETENTION OF URINE, UNSPECIFIED Status: Acute (5) Dysphagia as late effect of cerebrovascular accident (CVA) Code(s): I69.391 - DYSPHAGIA FOLLOWING CEREBRAL INFARCTION Status: Acute Comment: s/p PEG placement (6) Hemiplegia affecting right dominant side Code(s): G81.91 - HEMIPLEGIA, UNSPECIFIED AFFECTING RIGHT DOMINANT SIDE Status : Acute Qualifiers: Hemiplegia type: flaccid Hemiplegia etiology: late effect of cerebrovascular disease Cerebrovascular disease type: cerebral infarction Qualified Code(s): I69.351 - Hemiplegia and hemiparesis following cerebral infarction affecting right dominant side (7) HTN (hypertension) Code(s): I10 - ESSENTIAL (PRIMARY) HYPERTENSION Status: Chronic Qualifiers: Hypertension type: essential hypertension Qualified Code(s): I10 - Essential (primary) hypertension (8) Pacemaker Code(s): Z95.0 - PRESENCE OF CARDIAC PACEMAKER Status: Chronic (9) Chronic atrial fibrillation Code(s): I48.2 - CHRONIC ATRIAL FIBRILLATION Status: Chronic - Plan plan discussed w/ family, faustin catheter, continue antibiotics, PT/OT, respiratory therapy, incentive spirometry, DVT proph w/SCDs Discussed w PCP yesterday.discussed w daughter again today -: Cardiology recs for Coumadin-family agreeable to take risk -: they understand the pros and cons of coumadin given H/O significant bleed -: at the same time,pt high risk for recurrent embolic stroke d/t a-fib -: Hospice was brought up as recommenede by PCP earlier,family declined * .DC to [facility] when accepted * Hd stable Review of Systems - Review of Systems Other: can not be obtained due to CVA and expressive aphasia - Medications/Allergies Allergies/Adverse Reactions: Allergies Allergy/AdvReac Type Severity Reaction Status Date / Time Penicillins Allergy Verified 04/04/17 16:10 Medications: Current Medications Acetaminophen (Tylenol) 650 mg [place] Q4H PRN PRN Reason: Headache/Fever or Pain Aspirin (Aspirin) 325 mg PER TUBE DAILY [facility] Last Admin: 10/25/17 09:33 Dose: 325 mg Atorvastatin Calcium (Lipitor) 20 mg PER TUBE HS [facility] Last Admin: 10/24/17 21:43 Dose: 20 mg Enoxaparin Sodium (Lovenox) 40 mg SC 0900 [facility] Last Admin: 10/25/17 09:33 Dose: 40 mg Hydralazine HCl (Apresoline) 10 mg SLOW IVP Q4H PRN PRN Reason: BP > 220/110 Clindamycin Phosphate/Dextrose (900 mg/ Device) 50 mls @ 100 mls/hr IVPB ONCALL -OR [facility] Levofloxacin (Levaquin) 500 mg PER TUBE 0600 [facility] Last Admin: 10/25/17 06:16 Dose: 500 mg Lisinopril (Zestril) 10 mg PER TUBE BID [facility] Metoprolol Tartrate (Lopressor) 50 mg PER TUBE DAILY [facility] Last Admin: 10/25/17 09:30 Dose: 50 mg Ondansetron HCl (Zofran) 4 mg IVP Q6H PRN PRN Reason: Nausea/Vomiting Pantoprazole Sodium (Protonix) 40 mg PER TUBE DAILY [facility] Last Admin: 10/25/17 09:34 Dose: 40 mg Sodium Chloride (Flush - Normal Saline) 10 ml IVF PRN PRN PRN Reason: Saline Flush Warfarin Sodium (Coumadin) 10 mg PO NOW [facility] Stop: 10/25/17 16:00
[2017-10-25 15:18] VITALS: BP 183/83; TEMP 98
[2017-10-25] MEDS ORDERED: Lisinopril 10 MG TAB PER TUBE SCH (21:00)
--- NOTE | 2017-10-25 21:01 | CON ---
DATE OF CONSULTATION: 10/25/2017 CONSULTATION REQUESTED FOR: Retention. HISTORY OF PRESENT ILLNESS: The patient is an 87-year-old female known to me whom I last saw in the office in July and she was heading to [place] for the summer and she was going to do a 24-hour urine upon return and follow up to review that. More recently, she was admitted with a significant stroke and over the past couple days, it was noted to have significant retention and ultimately a catheter was placed for approximately 700 mL and has drained a significant amount since. PAST MEDICAL HISTORY: Significant for stroke in 2001, gout, hypertension, kidney stones, basal cell carcinoma. PAST SURGICAL HISTORY: Includes total abdominal hysterectomy in 1963, pacemaker in 2001, several basal cell removals in 2015 and then I performed on 04/12/2017 ureteroscopy with pyeloscopy and laser lithotripsy for what I thought was a distal ureteral stone that actually passed, so at that point, proceeded with lithotripsy of her renal pelvic stone, not attempting for clearance, but rather to prevent future obstruction given that it was in the renal pelvis and she is tolerating the rest of her kidney stones. SOCIAL HISTORY: Shows a significant drinking history, having 3-6 alcoholic beverages per day. She has a remote smoking history, but quit in the 50s and she was previously living with her daughter in [facility]. MEDICATIONS: Include metoprolol, lisinopril and prior anticoagulation that had been stopped. FAMILY HISTORY: Father at 79 of a heart attack. Mother at 87 of old age. ALLERGIES: PENICILLIN. REVIEW OF SYSTEMS: Colonoscopy and mammogram were unsure of the last, Pap smear was remote and no longer needed. She did not have Coumadin prior to this hospital stay and now has been started on that for her atrial fibrillation. She is currently aphasic, which is new from the stroke and has some hemiplegia related to this. She has not had a significant bowel movement since the and had 2 smears in the past 24 hours. There was concern for recent infection of the urine and so she was started on Levaquin for this. PHYSICAL EXAMINATION: VITAL SIGNS: T-max has been 99.4, current 98, hypertensive at 183/83, heart rate 73, satting 94% on room air and she has had 1800 and 2200 over the past 24 and 48 hours. GENERAL: She is alert and attempts to respond appropriately. I cannot gauge whether she understands because "yes" is the only thing that she is able to verbalize, but she does not appear to be in pain and denies this with shaking of the head. CARDIOVASCULAR: Irregular rhythm, but regular rate. LUNGS: Clear to auscultation bilaterally, but minimal inspiratory effort. ABDOMEN: Soft, nondistended, nontender with normoactive bowel sounds. Bowie catheter is in place draining yellow urine. EXTREMITIES: She had minimal ability to move her right side. Her left arm is able to be moved more readily and her left leg within somewhat of a contracted state. LABORATORY DATA: Reveal a CBC is unremarkable. A creatinine of 0.71 and urine from the 16th which showed too numerous to count wbc's, 7-10 RBCs, 2+ bacteria and 0-3 squamous. Any urine from admission that was unremarkable other than 4- 6 RBCs, which she has already had a workup. The urine culture from the 16 is showing presumed Enterococcus, so Levaquin should cover that. There are no new images of the kidneys or abdomen to review. ASSESSMENT AND PLAN: An 87-year-old female admitted with a stroke who has been followed by me previously for significant stone disease and known left-sided stones. She did not have significant infections before, but has had on occasion and now has retention likely worsened by presumed constipation. She was to get a Fleet's enema shortly after I saw her to help with this, I would add tamsulosin and since this is a capsule, it can be opened up and put in the liquid through PEG daily basis. I would give her 3-5 days of an antibiotic for her infection and she can be discharged with the Bowie. I will coordinate outpatient followup regarding getting the catheter out hopefully sooner than later. JUD
--- NOTE | 2017-10-26 02:39 | DIS ---
DATE OF ADMISSION: 10/19/2017 DATE OF DISCHARGE: 10/25/2017 CONDITION AT THE TIME OF DISCHARGE: Stable and improved. DISCHARGE DISPOSITION: [facility]. DISCHARGE DIAGNOSES: 1. Acute cardioembolic cerebrovascular accident with resultant left-sided hemiparesis. 2. Expressive aphasia secondary to cerebrovascular accident. 3. Urinary retention, status post Bowie catheterization secondary to acute cardioembolic cerebrovasc ular accident. 4. Dysphagia secondary to cerebrovascular accident, status post PEG tube placement. 5. Hypertension. 6. Chronic atrial fibrillation. 7. Pacemaker is present. 8. Urinary tract infection. DISCHARGE MEDICATIONS: Aspirin 81 mg daily, metoprolol tartrate 50 mg daily, Coumadin 5 mg daily, ta msulosin 0.4 mg daily, Protonix 40 mg daily, lisinopril 10 mg p.o. b.i.d., levofloxacin 500 mg daily for 5 more days, Lipitor 20 mg daily, and Tylenol p.r.n. INHOUSE CONSULTATION: 1. Neurology, Dr. Bong Guzman. 2. Cardiology, Dr. Cornel Jane and Dr. Saunders. 3. Gastroenterology, Dr. Lambert Duncan. PROCEDURES DONE IN THE HOSPITAL: 1. Transthoracic echocardiogram, which shows atrial fibrillation with EF of 50% to 55% and moderate mitral regurgitation and tricuspid regurgitation and elevated right ventricular systolic pressure 48 mmHg. 2. Placement of PEG tube. 3. Modified barium swallow, which showed definitive aspiration. 4. A CT angiogram of the head and neck, which has acute thrombus in the M1 segment of the left middl e cerebral artery and an evolving left MCA distribution without significant penumbra. No CT angio ab normality of the neck. 5. CT scan of the brain upon presentation, which showed possible hyperdense left MCA sign with hypod ensity in the left temporal lobe representing acute MCA distribution infarction. PRIMARY CARE PHYSICIAN: Shari Flanagan M.D. HISTORY OF PRESENT ILLNESS: Ms. Kingston is an 87-year-old female with past medical history which is q uite complicated with hematuria, history of recent extensive mesenteric and lower limb ischemia, nece ssitating embolectomy in 07/2017 as well as heavy daily alcohol abuse and history of stroke, hyperten pooja, peripheral vascular disease, who presented to the hospital with left-sided weakness and aphasia . Prior to the admission, she was sort of independent with her activities of daily living. Her CT s can was concerning for acute MCA infarction of the left side. CT angio showed acute thrombus in the M1 segment of left MCA. She was admitted to stroke floor with acute CVA and Neurology was consulted. She was hemodynamically stable upon presentation. Please see admission history and physical for fu rther details. HOSPITAL COURSE: Neurology saw the patient and recommended continuation of aspirin. She was also fo und to be in atrial fibrillation with rate control. I consulted Cardiology as the patient is in atri al fibrillation and this stroke appears to be embolic in nature. There was a lot of discussion invol ving Cardiology, Neurology as well as a primary care physician myself and her 2 daughters. All the r isks and benefits were discussed extensively given her past medical history of extensive hematuria as well as chronic alcohol abuse and multiple falls giving her multiple wounds. Eventually, it was rec ommended by her high school director, Dr. Jane that the patient should be anticoagulated and Coumadin would b e the safest choice. Once again, I discussed this with her daughter, Ms. Austin and after explaini ng all the risks and benefits, they decided to go ahead and proceed with oral anticoagulation as per the request of Dr. Jane. The patient was given 10 mg of Coumadin today. The patient also had difficulty with emptying her bladder, so a Bowie catheter was passed in. She wi ll see Dr. Lopez as an outpatient as she has already established care with her in the Urology depart ment given her history of extensive hematuria, nephrolithiasis, requiring laser lithotripsy. She also required a PEG tube placement when she failed the swallow study. This was done by Dr. Lambert Duncan and tube feeds were started and the patient has tolerated those well. Other than that, the patient remained hemodynamically stable and was working with OT, PT and speech t herapy here. After much discussion, the daughters decided that they would like the patient to go to SNF at [place], which was arranged and she will be discharged today as she has been accepted. All the questions were answered and discharge plan was discussed with the patient's daughters who rome balized understanding. The patient will follow up with Dr. Jane as well as Dr. Lopez and Dr. Lea boswell as an outpatient. They will also follow up with primary care physician. Please note that the patient has been deemed appropriate for hospice by her primary care physician as per my discussion with her. However, when the subject was broached up, the daughters do not want to pursue it any further. She will be discharged to SNF today. She was seen and examined prior to discharge. Please see hospitalist progress note from today's date for further detail including [id number] interaction. Total time spent in the discharge of this patient 38 minutes.
[2017-10-26] MEDS ORDERED: Tamsulosin HCl 0.4 MG CAP PO SCH (09:00)
--- NOTE | 2017-10-29 12:42 | EKG ---
Test Reason : Blood Pressure : / mmHG Vent. Rate : 094 BPM Atrial Rate : 087 BPM P-R Int : 000 ms QRS Dur : 070 ms QT Int : 382 ms P-R-T Axes : 000 -30 -58 degrees QTc Int : 477 ms Undetermined rhythm Left axis deviation Septal infarct , age undetermined Inferior infarct , age undetermined Abnormal ECG Confirmed by KYLEE BRINK, PERLA ([id number]), online editor MAKAYLA GONZALEZ ([id number]) on 10/29/2017 12:41:48 PM Referred By: Confirmed By:PERLA PICHARDO MD
== END 2017-10-25 18:22 | DRG 65 ==
LOC: ERS 18:29 → 2SE 21:56
PROVIDERS: ADMIT Hospitalist; ATTEND Hospitalist
PROC: 0DH68UZ Insertion of Feeding Device into Stomach, Via Natural or Artificial Opening Endoscopic (ICD-10-PCS; principal; 2017-10-22)
DX: I63.412 Cerebral infarction due to embolism of left middle cerebral artery (principal); G81.91 Hemiplegia, unspecified affecting right dominant side; N39.0 Urinary tract infection, site not specified; R47.01 Aphasia; R13.12 Dysphagia, oropharyngeal phase; R33.9 Retention of urine, unspecified; I48.2 Chronic atrial fibrillation; Z66 Do not resuscitate; I10 Essential (primary) hypertension; Z95.0 Presence of cardiac pacemaker; F10.10 Alcohol abuse, uncomplicated; K29.80 Duodenitis without bleeding; Z88.0 Allergy status to penicillin
CPT/HCPCS: 0042T; 36415; 36416; 51701; 70450; 70496; 70498; 72125; 74230; 80048; 80053; 80061; 81001; 81003; 81015; 82553; 83735; 84100; 84484; 85025; 85610; 87077; 87086; 87186; 93005; 93306; A4353; G8978-GP-CM; G8979-GP-CJ; G8987-GO-CM; G8988-GO-CK; G8996-GN-CM; G8996-GN-CN; G8997-GN-CM; J1650; J1956; J2001; J2405; J2704; J3490

== ENCOUNTER 2017-11-20 00:42 | Inpatient (IN) | payer MEDICARE, BC ==
[2017-11-20 01:29] LABS: Hemoglobin 14.1 g/dL (12.0-16.0); Mean Corpuscular HGB CONC 32.8 g/dL (32.0-36.0); Mean Corpuscular Hemoglobin 30.5 pg (27.0-31.0); Mean Platelet Volume 10.4 fL (7.4-10.4); Platelet Count 220 thou/uL (130-400); RBC Distribution Width 12.5 % (11.5-14.5); Red Blood Cell (RBC) Count 4.61 mill/uL (4.20-5.40); White Blood Cell (WBC) Count 21.5 thou/uL (4.8-10.8)
[2017-11-20 01:36] LABS: ALT (SGPT) 18 U/L (8-55); AST (SGOT) 26 U/L (5-34); Albumin 2.9 g/dL (3.4-4.8); Alkaline Phosphatase 90 U/L (40-150); Anion Gap 15 mmol/L (10-20); BUN (Urea Nitrogen) 40 mg/dL (9.8-20.1); Bilirubin, Total 1.9 mg/dL (0.2-1.2); Calc. Creatinine Clearance 0 mL/min (70-130); Carbon Dioxide 27 mmol/L (23-31); Chloride 94 mmol/L (98-107); Estimated GFR-MDRD 48; Globulin 3.5 g/dL (2.4-3.5); Glucose 149 mg/dL (83-110); Potassium 3.9 mmol/L (3.5-5.1); Protein, Total 6.4 g/dL (6.0-8.3); Sodium 132 mmol/L (136-145)
[2017-11-20 01:43] LABS: Band 25 % (5-11); Lymphocytes 10 % (21-51); MDiff Complete? YES; Monocytes 3 % (0-10); Neutrophil 62 % (42-75)
[2017-11-20] MEDS ORDERED: Cefepime 2 GM VIAL ONE (03:06)
[2017-11-20 03:13] LABS: Bilirubin Small (Negative); Blood, Urine Negative (Negative); Clarity TURBID (Clear); Glucose, Urine (Dipstick) Negative (Negative); Leukocyte Moderate (Negative); Nitrite Negative (Negative); Protein, Urine (Dipstick) Trace mg/dL (Neg-Trace); Specific Gravity, Urine 1.017 (1.002-1.036)
[2017-11-20 03:15] LABS: Bacteria/HPF 1+ HPF (None Seen); Squamous Epithelial 21-50 HPF (0-3)
[2017-11-20 03:45] LABS: Pathc Cast-AUWi Flag 11.04 (0-2.49); RBC/HPF None Seen HPF (0-3)
[2017-11-20 03:46] LABS: Hyaline Casts/LPF NONE SEEN LPF (0-3 Hyaline)
[2017-11-20 03:47] LABS: Other Casts/LPF None Seen LPF (0-3 Hyaline); Renal Epithelial None Seen HPF (0-3); Transitional Epithelial NONE SEEN HPF (0-3)
[2017-11-20 03:50] LABS: Crystals/HPF RARE AMORPH URATES HPF (Negative)
[2017-11-20 04:58] LABS: Base Excess-Venous 1.1 mmol/L (0 (+/- 2.5)); CO2 Tension (PvCO2) 41.2 mmHg (41.0-51.0); Calcium, Ionized 1.08 mmol/L (1.12-1.32); O2 Tension (PvO2) 99.5 mmHg (35.0-45.0); Potassium 3.3 mmol/L (3.4-4.7); T. Carbon Dioxide 27.2 mmol/L (1.0-85.0); pH (Venous) 7.407 (7.35-7.45); vO2 Saturation-calc 97.7 % (94-98)
[2017-11-20] MEDS ORDERED: Ondansetron HCl/PF 4 MG/2 ML Vial IVP PRN ×2 (04:59→07:09)
[2017-11-20] MEDS ORDERED: hydrALAZINE 20 MG/ML VIAL SLOW IVP PRN (05:04)
[2017-11-20] MEDS ORDERED: Acetaminophen 1,000 MG in Premix Bag 1 BAG IVPB PRN (05:08)
[2017-11-20] MEDS ORDERED: Ketorolac Tromethamine 30 MG/ML VIAL IVP PRN (05:08)
--- NOTE | 2017-11-20 05:14 | PDOC.FPRHP ---
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 EMS also reported a fever. Pt. Is aphasic s/p CVA but reports that she is having pain in her abdomen. Pt. Shakes her head no to current pain or discomfort. ED Course: Pt. received vanc and cefepime in ER. as well as 2L NS bolus - Allergies/Adverse Reactions Allergies Allergy/AdvReac Type Severity Reaction Status Date / Time Penicillins Allergy Verified 04/04/17 16:10 - Home Medications Medication Instructions Recorded Confirmed Type Aspirin 81 mg PO DAILY 11/20/17 11/20/17 History Atorvastatin Calcium [Lipitor] 20 mg PO DAILY 11/20/17 11/20/17 History Bisacodyl [Dulcolax] 10 mg VT DAILY PRN 11/20/17 11/20/17 History Ipratropium/Albuterol Sulfate 3 ml NEB QID PRN 11/20/17 11/20/17 History [Duoneb] Lisinopril [Zestril] 10 mg PO BID 11/20/17 11/20/17 History Metoprolol Tartrate 50 mg PO DAILY 11/20/17 11/20/17 History Pantoprazole Sodium [Protonix] 40 mg PO DAILY 11/20/17 11/20/17 History Tamsulosin HCl [Flomax] 0.4 mg PO DAILY 11/20/17 11/20/17 History Warfarin Sodium 5 mg PO DAILY 11/20/17 11/20/17 History - History PMHx:CVA, HTN PSHx: Aortic embolism repair, skin cancer removed, pacemaker placement, hysterectomy FHx: noncontributory Social: Former smoker, denies A/T - Review of Systems ROS unobtainable: due to mental status General: reports: fever/chills Gastrointestinal: reports: abdominal pain - Vital signs BP: 115/60 HR: 109 RR: 26 Tmax: 98.6 Pox: 100% on 3L Wt: 67.0 kg - Physical Exam Constitutional: NAD, other (Pt. could only answer simple questions with a nod) HEENT: normocephalic and atraumatic, PERRLA, EOMI, MMM, other (Poor dentition) Neck: supple, FROM, trachea midline, no JVD Chest: no-tender to palpation Heart: RRR, normal S1/S2, pulses present Lungs: CTAB, no respiratory distress, good air movement Abdomen: soft, bowel sounds present, no masses/distention, other (Pt. tender on RUQ with mild diffuse tenderness. PEG tube present) Musculoskeletal: ROM grossly normal Heme/Lymphatic: no unusual bruising or bleeding, no purpura FMR H&P: Results - Labs Result Diagrams: 11/20/17 01:10 11/20/17 01:10 Lab results: WBC 21.5 thou/uL (4.8-10.8) H 11/20/17 01:10 Hgb 14.1 g/dL (12.0-16.0) 11/20/17 01:10 Hct 42.9 % (36.0-47.0) 11/20/17 01:10 MCV 93.0 fL (78.0-98.0) 11/20/17 01:10 Plt Count 220 thou/uL (130-400) 11/20/17 01:10 Band Neuts % (Manual) 25 % (5-11) H 11/20/17 01:10 Sodium 132 mmol/L (136-145) L 11/20/17 01:10 Potassium 3.9 mmol/L (3.5-5.1) 11/20/17 01:10 Chloride 94 mmol/L (98-107) L 11/20/17 01:10 Carbon Dioxide 27 mmol/L (23-31) 11/20/17 01:10 BUN 40 mg/dL (9.8-20.1) H 11/20/17 01:10 Creatinine 1.07 mg/dL (0.6-1.1) 11/20/17 01:10 Glucose 149 mg/dL (83-110) H 11/20/17 01:10 Lactic Acid 2.0 mmol/L (0.5-2.2) 11/20/17 01:10 Calcium 9.0 mg/dL (7.8-10.44) 11/20/17 01:10 Total Bilirubin 1.9 mg/dL (0.2-1.2) H 11/20/17 01:10 AST 26 U/L (5-34) 11/20/17 01:10 ALT 18 U/L (8-55) 11/20/17 01:10 Alkaline Phosphatase 90 U/L (40-150) 11/20/17 01:10 Serum Total Protein 6.4 g/dL (6.0-8.3) 11/20/17 01:10 Albumin 2.9 g/dL (3.4-4.8) L 11/20/17 01:10 Urine Ketones Trace mg/dL (Negative) H 11/20/17 02:33 Urine Blood Negative (Negative) 11/20/17 02:33 Urine Nitrite Negative (Negative) 11/20/17 02:33 Ur Leukocyte Esterase Moderate (Negative) H 11/20/17 02:33 Urine RBC None Seen HPF (0-3) 11/20/17 02:33 Urine WBC 11-20 HPF (0-3) H 11/20/17 02:33 Ur Squamous Epith Cells 21-50 HPF (0-3) H 11/20/17 02:33 Urine Bacteria 1+ HPF (None Seen) H 11/20/17 02:33 FMR H&P: A/P - Problem List (1) Sepsis Current Visit: Yes Status: Acute Code(s): A41.9 - SEPSIS, UNSPECIFIED ORGANISM (2) Acute cholecystitis due to biliary calculus Current Visit: Yes Status: Acute Code(s): K80.00 - CALCULUS OF GALLBLADDER W ACUTE CHOLECYST W/O OBSTRUCTION (3) Aphasia as late effect of cerebrovascular accident Current Visit: No Status: Acute Code(s): I69.320 - APHASIA FOLLOWING CEREBRAL INFARCTION (4) Cerebrovascular accident (CVA) involving left cerebral hemisphere Current Visit: No Status: Acute Code(s): I63.9 - CEREBRAL INFARCTION, UNSPECIFIED Comment: Chelsi embolic (5) Dysphagia as late effect of cerebrovascular accident (CVA) Current Visit: No Status: Acute Code(s): I69.391 - DYSPHAGIA FOLLOWING CEREBRAL INFARCTION Comment: s/p PEG placement (6) Chronic atrial fibrillation Current Visit: No Status: Chronic Code(s): I48.2 - CHRONIC ATRIAL FIBRILLATION (7) HTN (hypertension) Current Visit: No Status: Chronic Code(s): I10 - ESSENTIAL (PRIMARY) HYPERTENSION Qualifiers: Hypertension type: essential hypertension Qualified Code(s): I10 - Essential (primary) hypertension - Plan This is a 87 yo female PMH of HTN, 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 We are placing a central line for potential BP support. Pt. Is also receiving flagyl, cefepine, and LR. Pt. has blood and urine cultures pending. Surgery has been consulted Chronic Afib -Pt. Currently takes warfarin and we are holding pending surgery. Pending coagulation panel Recent CVA -Aware, Pt. Has residual deficit HTN -Hold BP meds until sepsis is cleared Dysphagia -Pt. Has peg tube. We will resume tube feedings once pt has had surgery. Code: DNR Prophylaxis: SCDs Family: Dr. Abbott discussed treatment and plan with Pippa Kaiser, daughter. Disposition: DC to [facility] in 4-5 days FMR H&P: Upper Level - Pertinent history 87 yo WF PMH recent CVA presented from [facility] with CC of tachycardia. Recent CVA has left patient aphasic. History limited due to this. patient will nod yes and no to questions. Endorses abdominal pain. Spoke with daughter who agreed to central line but state patient is DNR-DNI. ER: Labs, CXR, cultures, EKG, vanc, cefepime, NS 2L, right IJ central line. - Pertinent findings Vitals BP initially low at 80s/60s, now 110s/60s. pulse 110, Tmax 98.1F. SpO2 98 % on RA. GEN: NAD, non verbal but follows commands. CV: RRR, no murmur Pulm: CTA-B, normal effort Abdomen: TTP RUQ, mild distention. Neuro: no voluntary movement right UE or LE. Aphasic, Labs: WBC 21%. Bands 25%. lactic acid 2.0. RUQ US: enlarged gall bladder with wall thickening. EKG: A-fib with RVR CXR: Central line in appropriate position, no pneumothorax, small unchanged pleural effusions. - Plan Date/Time: 11/20/17 2756 I, Jacob Abbott MD, have evaluated this patient and agree with findings/plan as outlined by corporate legal intern resident. Pertinent changes/additions are listed here. 1. Sepsis 2/2 acute cholecytitis: Admit to [facility] for close observation. No need for pressors at this time. Flagyl and Cefepime. General surgery consulted. Will await recommendations 2. Cholelithiais: General surgery recommendations 3. HTN: hold antihypertensives 4. Hx CVA with residual deficits and S/P g-tube: stable 5. A-fib: hold warfarin pending surgery recs, check PT and INR 6. Diet: NPO, LR at 100/hr 7. PPx: SCD 8. CODE: DNR-DNI, spoke with daughter who agreed to DNR status. Dispo: inpatient, IMCU, >[address] Shi. Attending Addendum - Attending Addendum Date/Time: 11/20/17 1038 I personally evaluated the patient and discussed the management with Dr. Mcgowan /Milena I agree with the History, Examination, Assessment and Plan documented above with any addition or exceptions noted below- Briefly this is an 87 yo female with h/o CVA 1 month ago with residual right hemiplegia and aphasia, A-fib, HTN sent [facility] due to fever and tachycardia, in ER noted to be tachycardic and hypotensive. Noted to have some abdominal tenderness. Daughter reports that she has seemed more uncomfortable over the last couple of days. denies any cough, SOB. PMH/PSH/Med/All reviewed and agree with resident's documentation. Afebrile BP 100/67 P105 RR 18 Exam repeated by me nad agree with resident's findings. Labs WBC=21.5, H/H=14.1/42.9, plt= 220, Diff= 62N/20B , Na= 132, K= 3.9, Cl=94, CO2=27, BUN/Cr= 40/1.07, INR= 3.5, AST/ALT=26/18. RUQ USG- distended gallbladder; findings c/w cholecystitis. A/P: 1) Sepsis secondary to cholecysitis- BP improved with IVF resuscitation. Started on Cefepime and flagyl and will continue. Surgery consulted. Blood cultures drawn. 2) Chronic A-fib- inr elevated; will need to adjust dose of warfarin. 3) HTN- hold BP meds until patient more stable.
[2017-11-20 05:16] LABS: INR-International Normal Ratio 3.5; PTT 50.1 SEC (22.9-36.1); Prothrombin Time 34.8 SEC (12.0-14.7)
[2017-11-20] MEDS ORDERED: Acetaminophen 325 MG TAB PER TUBE PRN (07:09)
[2017-11-20 08:29] VITALS: BMI 25.6
[2017-11-20] MEDS ORDERED: Metoprolol Tartrate 50 MG TAB PO SCH (09:00)
[2017-11-20] MEDS ORDERED: Lisinopril 10 MG TAB PER TUBE SCH (09:00)
[2017-11-20] MEDS ORDERED: Tamsulosin HCl 0.4 MG CAP PO SCH (09:00)
[2017-11-20] MEDS ORDERED: Famotidine/PF 20 mg/2ml Vial SLOW IVP SCH (09:00)
[2017-11-20] MEDS: Lactated Ringer's 1,000 ML IV SCH ×3 (09:03→21:19)
[2017-11-20] MEDS: Famotidine/PF 20 mg/2ml Vial SLOW IVP SCH ×2 (09:03→21:17)
[2017-11-20] MEDS: metroNIDAZOLE 500 MG in Premix Bag 1 BAG IVPB SCH ×2 (09:04→16:41)
[2017-11-20] MEDS: Cefepime 2 GM in Sodium Chloride 0.9% 100 ML IVPB SCH ×2 (09:05→21:17)
--- NOTE | 2017-11-20 09:50 | HP ---
HISTORY OF PRESENT ILLNESS: 87-year-old female lives at [facility], intending to go back home to live with her daughter. The patient 10/19/2017 presented with a stroke, left hemispheric, leaving her wi th aphasia, right hemiparesis, nonambulatory. Prior to this, she is ambulatory. The patient is a DN R. She has had problems with urolithiasis, followed Dr. Lopez. She has a pacemaker. She has a rec ent echocardiogram, has been seen by Dr. Jane. Her echocardiogram revealed a 50-55% EF. She has atr ial fibrillation and February, but started back on Coumadin. She has atrial fibrillation, has b een on anticoagulation for that, but has been off since February, restarting this after recent stroke. The patient developed fever, seemed to have abdominal pain, brought to the emergency room. Ultraso und revealed gallstones, 2 mm bile duct. Bilirubin 1.9, AST and ALT are normal. She has a feeding t ube as she is not able to swallow. She was admitted to the [facility]. Coags have been ordered, not yet obtained. White count 21, hemoglobin 14. Sodium 132, potassium 3.9, BUN 40, creat inine 1.0, bilirubin 1.9. AST, ALT, and alkaline phosphatase are normal. MEDICATIONS: Coumadin 5 mg a day, Flomax 0.4 mg a day, Protonix 40 mg a day, metoprolol 50 mg a day, lisinopril 10 mg a day, Levaquin 500 per tube per day, Dulcolax p.r.n., Lipitor 20 mg at bedtime per tube, aspirin 81 mg a day per feeding tube. PAST SURGICAL HISTORY: Hysterectomy, PEG tube. PAST MEDICAL HISTORY: Colon dysfunction, cataracts, hypertension, recent stroke. SOCIAL HISTORY: Tobacco use in the past, history of alcohol abuse. PHYSICAL EXAMINATION: GENERAL: The patient is unable to speak. She opens eyes to voice. LUNGS: Clear to auscultation. CARDIAC: Regular rate and rhythm without murmur or gallop. ABDOMEN: Soft, tenderness in right upper quadrant. PEG tube in place. EXTREMITIES: Unremarkable. LABORATORIES: As noted above. ASSESSMENT AND PLAN: 1. Cholecystitis. We would recommend intravenous antibiotics, IV fluids, bowel rest. I have discus sed with the patient's daughter options of laparoscopic cholecystectomy, tube cholecystostomy. The p atient adamantly refused to have a colostomy in the past when it was discussed that possibly colectom y might be necessary. 2. Atrial fibrillation. 3. Defibrillator pacemaker present. 4. History of urinary stones. 5. Stroke three weeks ago, leaving her with right hemiparesis, aphasia and nonambulatory. 6. Allergies to PENICILLIN.
--- NOTE | 2017-11-20 10:02 | RAD ---
UPRIGHT PORTABLE CHEST 1 VIEW: Date: 11/20/17 HISTORY: 87-year-old female with history of dyspnea. COMPARISON: 11/19/17. FINDINGS: Cardiomegaly with bilateral vascular congestion and small pleural effusions. Left ICD. Monitor leads overlie the chest. Little change from prior study. IMPRESSION: Stable cardiomegaly, vascular congestion, and small pleural effusions. Continued short-term follow-up . POS: RENETTA
--- NOTE | 2017-11-20 10:21 | RAD ---
UPRIGHT PORTABLE CHEST 1 VIEW: Date: 11/20/17 HISTORY: 87-year-old female with history of increased heart rate and fever. COMPARISON: 11/20/17 at 0101 hours. FINDINGS: Right jugulovenous catheter has been placed with the tip in the superior vena cava. There is cardiome jenn with bilateral vascular congestion and some interstitial and reticulonodular parenchymal changes . Bilateral pleural effusions. No right-sided pneumothorax. IMPRESSION: Right jugulovenous catheter placed without complication. Cardiomegaly with vascular congestion and mi ld interstitial edema and pleural effusion. Continue short-term follow-up for complete clearing. POS: RENETTA
--- NOTE | 2017-11-20 11:43 | ULT ---
PRELIMINARY REPORT/[facility]/EMERGENCY AFTER HOURS PROCEDURE: EXAM: US Abdomen Limited, Right Upper Quadrant CLINICAL HISTORY: 87 years old, female; Pain; Other: Ruq pain, sepsis TECHNIQUE: Real-time ultrasound of the right upper quadrant with image documentation. COMPARISON: No relevant prior studies available. FINDINGS: Liver: Normal. No mass. No intrahepatic bile duct dilation. Gallbladder: Echogenic, shadowing foci within the gallbladder, compatible with calcified gallstones. Enlarged gallbladder. Gallbladder wall thickening and wall edema (6-8 mm). Small amount of pericholec ystic fluid. Sonographic Bucio sign was reportedly positive. Common bile duct: Common bile duct measures 2 mm in diameter. No stones. No dilation. Pancreas: Normal as visualized. Right kidney: Right kidney is normal in echogenicity and measures 8.6 cm in length. No stones. No hyd ronephrosis. IMPRESSION: 1. Cholelithiasis, with sonographic evidence of cholecystitis. 2. No biliary dilation. Thank you for allowing us to participate in the care of your patient. Dictated and Authenticated by: Gentry Garcia MD 11/20/2017 4:34 AM Central Time ([place] & [place]) FINAL REPORT EMERGENCY AFTER HOURS RIGHT UPPER QUADRANT ULTRASOUND: Date: 11/20/17 Time: 0236 hours FINDINGS/IMPRESSION: Somewhat coarse liver echogenicity. Distended gallbladder with some gallbladder wall thickening and m ultiple gallstones. Evidence for cholelithiasis and cholecystitis with a positive sonographic Bucio' s sign. No common duct dilatation. Report in agreement with preliminary report given on-call by Tiffany. POS: RENETTA
[2017-11-20] MEDS ORDERED: Phytonadione 10 MG/ML AMP SC SCH (17:45)
--- NOTE | 2017-11-20 18:57 | CON ---
DATE OF CONSULTATION: 11/20/2017 SERVICE: Pulmonary Medicine. INTERVAL HISTORY: The patient is an 87-year-old white female with past medical history significant for recent stroke. She is essentially bed bound with a dense right-sided hemiplegia. The being said, she was in her usual state of health until she started having some increasing abdominal discomfort. She has aphasia and cannot get words out. That being said, she can understand most of what telling her. She ended up being discovered to have an acute cholecystitis. She is DNI/DNR. She does not want any type of operations moving forward understanding this could shorten her life. That being said, we must respect her wishes. Despite her debility, the clearly understands the implications of her choices. Because of her aphasia, everything comes from chart review. PAST MEDICAL HISTORY: 1. Cerebrovascular accident. 2. Hypertension. PAST SURGICAL HISTORY: 1. Aortic aneurysm repair. 2. Excision of skin cancer. 3. Pacemaker placement. 4. Hysterectomy. FAMILY HISTORY: Noncontributory. SOCIAL HISTORY: She has remote history of smoking. Denies any alcohol or tobacco use. REVIEW OF SYSTEMS: This cannot be obtained because of her aphasia. PHYSICAL EXAMINATION: VITAL SIGNS: Afebrile, pulse 97, blood pressure is 104/66, respirations 25, saturation 100% on 3 liters nasal cannula. GENERAL: The patient awake, alert, no apparent distress. LUNGS: Excellent air entry. There is no prolonged expiratory phase or wheezing. HEART: Normal rate, regular. ABDOMEN: Soft. Distended. Bowel sounds are present. There is a little bit of tenderness to palpation throughout, but is more pronounced in the right upper extremity without rebound. There is no guarding. GENITOURINARY: Bowie catheter in place. NEUROLOGIC: Grossly nonfocal. LABORATORY DATA: WBC . CBC is otherwise unremarkable. Of note, the band count is 25%. INR 3.5. PH 7.4, pCO2 41, creatinine 1.07. Basic metabolic profile is otherwise unremarkable, lactate 2.0. LFTs are significant for total bilirubin of 1.9 and alkaline phosphatase of 90 with normal AST and ALT. IMAGING DATA: Ultrasound of the abdomen demonstrates pericholecystic fluid with decompressed common bile duct. Sonographic Bucio sign is abnormal. Multiple gallstones are present. Chest x-ray demonstrates interstitial edema and small bilateral pleural effusions. Cephalization is noted. There is a right IJ central venous catheter that terminates in decent position. A coronal angle is quite wide, suggesting left atrial enlargement and/or subcarinal lymphadenopathy. The heart border is generous in size despite the fact there is an AP film. ASSESSMENT: 1. Acute cholecystitis. 2. Sepsis without evidence of end organ damage. 3. Chronic diastolic heart failure. 4. History of cerebrovascular accident with dense hemiplegia on the right and aphasia. DISCUSSION AND PLAN: The patient is not a surgical candidate because she would not like to have any surgeries moving forward. Agree with empiric antibiotics covering anaerobic and gram negative organisms. Gentle hydration will be pursued at this point. We will watch her ins and outs fairly carefully and if she starts to retain fluid, we may need to back off on her rate. From my perspective, she is stable for transition to the medical unit. That being said , we will continue to follow in this location. 70 minutes have been devoted to this patient in various activities. I personally reviewed all imaging studies and laboratory data noted within this document. For fifty percent of this time, I was interacting with the patient at the bedside or coordinating care with the care team. For the remainder of the time I was immediately available to the patient in the hospital unit. JUD
[2017-11-21] MEDS: metroNIDAZOLE 500 MG in Premix Bag 1 BAG IVPB SCH ×2 (01:53→08:13)
[2017-11-21 05:01] LABS: INR-International Normal Ratio 3.3; PTT 62.5 SEC (22.9-36.1); Prothrombin Time 33.3 SEC (12.0-14.7)
[2017-11-21 05:13] LABS: #Eosinphils 0.2 thou/uL (0.0-0.7); #Lymphocytes 0.9 thou/uL (1.20-3.40); #Monocytes 0.5 thou/uL (0.11-0.59); #Neutrophils 12.7 thou/uL (1.40-6.50); %Eosinophils 1.3 % (0.0-10.0); %Lymphocytes 6.4 % (21.0-51.0); %Monocytes 3.7 % (0.0-10.0); %Neutrophils 88.6 % (42.0-75.0); Hemoglobin 10.5 g/dL (12.0-16.0); Mean Corpuscular HGB CONC 32.2 g/dL (32.0-36.0); Mean Corpuscular Hemoglobin 30.3 pg (27.0-31.0); Mean Corpuscular Volume 94.1 fL (78.0-98.0); Mean Platelet Volume 9.9 fL (7.4-10.4); Platelet Count 200 thou/uL (130-400); RBC Distribution Width 12.5 % (11.5-14.5); Red Blood Cell (RBC) Count 3.48 mill/uL (4.20-5.40); White Blood Cell (WBC) Count 14.3 thou/uL (4.8-10.8)
[2017-11-21 05:17] LABS: ALT (SGPT) 18 U/L (8-55); AST (SGOT) 37 U/L (5-34); Albumin 2.3 g/dL (3.4-4.8); Alkaline Phosphatase 88 U/L (40-150); Anion Gap 10 mmol/L (10-20); BUN (Urea Nitrogen) 36 mg/dL (9.8-20.1); Bilirubin, Total 1.3 mg/dL (0.2-1.2); Calc. Creatinine Clearance 58 mL/min (70-130); Calcium 8.4 mg/dL (7.8-10.44); Carbon Dioxide 25 mmol/L (23-31); Chloride 105 mmol/L (98-107); Estimated GFR-MDRD 80; Globulin 2.7 g/dL (2.4-3.5); Glucose 70 mg/dL (83-110); Potassium 3.4 mmol/L (3.5-5.1); Sodium 137 mmol/L (136-145)
[2017-11-21] MEDS ORDERED: Phytonadione 10 MG/ML AMP SC SCH (07:15)
[2017-11-21] MEDS: Lactated Ringer's 1,000 ML IV SCH (08:20)
--- NOTE | 2017-11-21 08:30 | RAD ---
CHEST 1 VIEW: COMPARISON: 11/20/2017. HISTORY: Tachycardia and fever. Increased respiratory rate. FINDINGS: Stable left-sided transvenous pacemaker. Stable right-sided internal jugular central venous catheter with the distal tip in the expected region of the superior vena cava. Persistent cardiomegaly and atherosclerosis. Persistent opacification of the lung bases suggesting p leural effusion and parenchymal changes. No evidence of consolidation of either upper lung. No pneu mothorax or osseous abnormality. IMPRESSION: Persistent changes compatible with congestive heart failure. POS: RENETTA
--- NOTE | 2017-11-21 08:33 | PDOC.FM ---
- Subjective Subjective: This morning patient denies being in pain. Denies shortness of breath, abdominal pain, or chest pain. She is aphasic, nods that she slept well overnight. Patient re-iterated that she is not interested in surgery. When hospice care was explained she nodded that this is what she would want. - Objective Vital Signs & Weight: Vital Signs (12 hours) Temp Pulse Resp BP Pulse Ox 11/21/17 07:29 97.3 F L 102 H 18 133/69 11/21/17 04:00 97.1 F L 105 H 26 H 115/69 95 11/21/17 00:00 98.0 F 104 H 25 H 117/62 96 11/20/17 21:00 107 H 18 120/69 Weight Weight 65.68 kg I&O: 11/20/17 11/21/17 11/22/17 06:59 06:59 06:59 Intake Total 2493 Output Total 995 Balance 1498 Result Diagrams: 11/21/17 04:40 11/21/17 04:40 <Ernie Lebron - Last Filed: 11/21/17 08:31> - Objective Vital Signs & Weight: Vital Signs (12 hours) Temp Pulse Resp BP Pulse Ox 11/21/17 11:30 98.1 F 93 19 137/77 98 11/21/17 08:00 95 11/21/17 07:29 97.3 F L 102 H 18 133/69 11/21/17 04:00 97.1 F L 105 H 26 H 115/69 95 Weight Admit Weight 65.68 kg Weight 65.68 kg I&O: 11/20/17 11/21/17 11/22/17 06:59 06:59 06:59 Intake Total 2493 30 Output Total 995 Balance 1498 30 Result Diagrams: 11/21/17 04:40 11/21/17 04:40 <Donovan Ryan - Last Filed: 11/21/17 12:35> Phys Exam - Physical Examination Constitutional: NAD HEENT: PERRLA, moist MMs Respiratory: no wheezing, clear to auscultation bilateral Cardiovascular: RRR, no significant murmur Gastrointestinal: soft Pain to deep palpation RUQ Musculoskeletal: no edema, pulses present chronic weakness on R Psychiatric: normal affect Skin: no rash, cap refill <2 seconds <Ernie Lebron - Last Filed: 11/21/17 08:31> Dx/Plan (1) Acute cholecystitis due to biliary calculus Code(s): K80.00 - CALCULUS OF GALLBLADDER W ACUTE CHOLECYST W/O OBSTRUCTION Status: Acute (2) Sepsis Code(s): A41.9 - SEPSIS, UNSPECIFIED ORGANISM Status: Acute (3) Aphasia as late effect of cerebrovascular accident Code(s): I69.320 - APHASIA FOLLOWING CEREBRAL INFARCTION Status: Acute (4) Chronic atrial fibrillation Code(s): I48.2 - CHRONIC ATRIAL FIBRILLATION Status: Chronic (5) HTN (hypertension) Code(s): I10 - ESSENTIAL (PRIMARY) HYPERTENSION Status: Chronic Qualifiers: Hypertension type: essential hypertension Qualified Code(s): I10 - Essential (primary) hypertension - Plan Plan: # Sepsis 2/2 acute cholecystitis - vitals stable overnight, afebrile - P105, RR 26 when off O2 - cont flagyl/cefepime # Hospice - patient nods that she would be interested in hospice care - re-iterated that she does not want surgery - palliative care team consulted # HTN - hold for now # Hx of CVA - residual deficits, g-tube # Afib - holding warfarin, for now per surgery recs - pending family discussion on goals of care Diet: g-tube Fluids: LR 100ml/hr PPx: scd Code: DNR/DNI <Ernie Lebron - Last Filed: 11/21/17 08:31> Attending Addendum - Attending Addendum Date/Time: 11/21/17 1221 I personally evaluated the patient and discussed the management with Dr. Lebron I agree with the History, Examination, Assessment and Plan documented above with any addition or exceptions noted below.Discussed with Patient and Daughter at bedside regard palliative care and possibility of Hospice if patient so desires. Patient was previously in Rehab following recent CVA and is steadfast about not wanting any surgery and for the time bearing will continue PEG tube feeding and declines formal speech therapy evaluation for swallowing. <Donovan Ryan - Last Filed: 11/21/17 12:35>
[2017-11-21] MEDS: Cefepime 2 GM in Sodium Chloride 0.9% 100 ML IVPB SCH (09:24)
[2017-11-21] MEDS: Famotidine/PF 20 mg/2ml Vial SLOW IVP SCH ×2 (09:25→20:08)
[2017-11-21] MEDS: Tamsulosin HCl 0.4 MG CAP FS SCH (09:26)
--- NOTE | 2017-11-21 11:25 | PDOC.EVN ---
Event Note - Event Note Event Note: Patient not interested in advancing diet for comfort feeds, she is content with tube feeds Patient does not want surgery Will restart diet at 1/2 rate from residential
--- NOTE | 2017-11-21 11:35 | PRG ---
DATE OF SERVICE: 11/21/2017 SERVICE: Pulmonary Medicine. INTERVAL HISTORY: The patient is doing fine from a respiratory standpoint. Her belly pain is much i mproved. She denies any fevers or chills. There are no overnight events. She has chosen to go home with the care of hospice. PHYSICAL EXAMINATION: VITAL SIGNS: Afebrile, pulse 102, blood pressure 133/69, respirations 18, saturation 95% on room air . GENERAL: The patient is awake and alert, in no apparent distress. LUNGS: Decent air entry. There is no prolonged expiratory phase. Dependent crackles are present. HEART: Normal rate, regular. ABDOMEN: Soft, nontender, nondistended. Bowel sounds are positive. MUSCULOSKELETAL: No cyanosis or clubbing. There is no pitting in the bilateral lower extremities. LABORATORY DATA: Basic metabolic profile and liver function studies are essentially unremarkable/imp roving. Potassium 3.4. WBC is down trending to 14.3. Hemoglobin 10.5. Urine cultures negative to date. IMAGING: Chest x-ray demonstrates findings consistent with slight volume overload. ASSESSMENT: 1. Sepsis without end organ damage. 2. Acute cholecystitis. 3. History of cerebrovascular accident with severe debility. 4. Chronic diastolic heart failure with minimal volume overload. DISCUSSION AND PLAN: I will discontinue her IV fluids. Potassium will be replaced today. I will sw itch her antibiotics over to a p.o. regimen. From my perspective, the patient is stable for transiti on out of the hospital. She wants to go home with hospice, but I think a 10- to 14-day course of ant ibiotics is still indicated for her known disease process. Pulmonary Critical Care will continue to follow along if she remains in the IMCU, but if she is not going out today with hospice, she can be t ransitioned to the medical unit.
[2017-11-21] MEDS: metroNIDAZOLE 500 MG TAB PO SCH ×2 (15:12→20:08)
[2017-11-21] MEDS: Cefdinir 300 MG CAP PO SCH (20:08)
--- NOTE | 2017-11-21 22:14 | PRG ---
DATE OF SERVICE: 11/21/2017 SUBJECTIVE: Olya Kingston has been transferred to the Oncology floor. She is DNR. Family and the pat ient does not want any surgical intervention nor did they want cholecystostomy. I reported the patie nt's bedside and she affirms this. She denies having significant pain. OBJECTIVE: VITAL SIGNS: Temperature 99.5 degrees, 98, 146/74. LUNGS: Clear to auscultation. CARDIAC: Regular rate and rhythm. ABDOMEN: Soft. Some grimacing in right upper quadrant palpation. LABORATORY DATA: White count 14, down from 21,000, hemoglobin 10. Basic metabolic profile unremarka ble. Bilirubin down to 1.3. ASSESSMENT AND PLAN: Suspicious for acute cholecystitis and cholelithiasis. The patient is on antic oagulation that has been held. Her INR is 3.3. Treatment options to include laparoscopic cholecyste ctomy, which I do not think she would tolerate well and the patient does not want. Another option wo uld be percutaneous tube cholecystostomy by Radiology once her INR is normalized; however, the patitana t does not want this either nor does the family. At this point, I will be available to see the patifranklin nt as needed; if situation changes that she desires some sort of surgical intervention and followup, I would be glad to see her. Please call if needed.
[2017-11-22] MEDS: Cefdinir 300 MG CAP PO SCH ×2 (08:38→21:52)
[2017-11-22] MEDS: metroNIDAZOLE 500 MG TAB PO SCH ×3 (08:38→21:52)
[2017-11-22] MEDS: Tamsulosin HCl 0.4 MG CAP FS SCH (08:39)
[2017-11-22] MEDS: Famotidine/PF 20 mg/2ml Vial SLOW IVP SCH ×2 (08:39→21:33)
--- NOTE | 2017-11-22 08:42 | PDOC.FM ---
- Subjective Subjective: This morning patient denies CP, SOB, N/V/D. This morning she seems to have a more flat affect than yesterday. Had discussion with palliative care team last night, planning on home hospice at daughter's house. Confirmed once again that this is what she desires this AM. - Objective Vital Signs & Weight: Vital Signs (12 hours) Temp Pulse Resp BP Pulse Ox 11/22/17 08:00 99.0 F 114 H 24 H 189/80 H 90 L 11/22/17 04:00 97.9 F 100 20 134/72 91 L 11/22/17 00:00 97.9 F 100 20 156/78 H 90 L Weight Admit Weight 65.68 kg Weight 65.68 kg I&O: 11/21/17 11/22/17 11/23/17 06:59 06:59 06:59 Intake Total 2493 1354 Output Total 995 750 Balance 1498 604 Result Diagrams: 11/21/17 04:40 11/21/17 04:40 <Ernie Lebron - Last Filed: 11/22/17 08:44> - Objective Vital Signs & Weight: Vital Signs (12 hours) Temp Pulse Resp BP Pulse Ox 11/22/17 08:45 106 H 20 144/79 H 93 L 11/22/17 08:00 99.0 F 114 H 24 H 189/80 H 90 L 11/22/17 04:00 97.9 F 100 20 134/72 91 L 11/22/17 00:00 97.9 F 100 20 156/78 H 90 L Weight Admit Weight 65.68 kg Weight 65.68 kg I&O: 11/21/17 11/22/17 11/23/17 06:59 06:59 06:59 Intake Total 2493 1354 Output Total 995 750 Balance 1498 604 Result Diagrams: 11/21/17 04:40 11/21/17 04:40 <Donovan Ryan - Last Filed: 11/22/17 10:57> Phys Exam - Physical Examination Constitutional: NAD HEENT: PERRLA, moist MMs Neck: no nodes Respiratory: no wheezing, clear to auscultation bilateral Cardiovascular: RRR, no significant murmur Gastrointestinal: soft jack spooler tender to palpation in RUQ Musculoskeletal: no edema, pulses present chronic weakness on the R Psychiatric: normal affect Skin: no rash, cap refill <2 seconds <Ernie Lebron - Last Filed: 11/22/17 08:44> Dx/Plan (1) Acute cholecystitis due to biliary calculus Code(s): K80.00 - CALCULUS OF GALLBLADDER W ACUTE CHOLECYST W/O OBSTRUCTION Status: Acute (2) Sepsis Code(s): A41.9 - SEPSIS, UNSPECIFIED ORGANISM Status: Acute (3) Aphasia as late effect of cerebrovascular accident Code(s): I69.320 - APHASIA FOLLOWING CEREBRAL INFARCTION Status: Acute (4) Chronic atrial fibrillation Code(s): I48.2 - CHRONIC ATRIAL FIBRILLATION Status: Chronic (5) HTN (hypertension) Code(s): I10 - ESSENTIAL (PRIMARY) HYPERTENSION Status: Chronic Qualifiers: Hypertension type: essential hypertension Qualified Code(s): I10 - Essential (primary) hypertension - Plan Plan: # Hospice - palliative has seen patient, wants to have home hospice with OT/PT - Spoke to CM this AM, will help make arrangements - patient is content with G-tube feeds # Sepsis 2/2 acute cholecystitis - vitals stable overnight, afebrile - P100, 91% on RA - cont flagyl/cefdinir # HTN - hold for now # Hx of CVA - residual deficits, g-tube # Afib - holding warfarin, for now per surgery recs - pending family discussion on goals of care Diet: g-tube Fluids: tko PPx: scd Code: DNR/DNI <Ernie Lebron - Last Filed: 11/22/17 08:44> Attending Addendum - Attending Addendum Date/Time: 11/22/17 1054 I personally evaluated the patient and discussed the management with Dr. Chris Lebron I agree with the History, Examination, Assessment and Plan documented above with any addition or exceptions noted below. Patient withdrawn this AM she denies pain she is TTP RUQ, need to confirm patient wishes for Hospice care in Daughters home. Patient tolerating feeding at 40 ml/hr. Dr Lebron to meet with Daughter and Patient again today. <Donovan Ryan - Last Filed: 11/22/17 10:57>
[2017-11-22] MEDS ORDERED: Metoprolol Tartrate 50 MG TAB PO SCH (15:15)
[2017-11-22] MEDS ORDERED: Lisinopril 10 MG TAB PO SCH (15:15)
[2017-11-22] MEDS: Lisinopril 10 MG TAB PO SCH (21:52)
--- NOTE | 2017-11-23 08:04 | PDOC.FM ---
- Subjective Subjective: This morning patient nods that she had some abdominal pain overnight but it is now resolved. Per CM, plan is for her to go to rehab for 2 weeks and then home with hospice if this is possible. - Objective Vital Signs & Weight: Vital Signs (12 hours) Temp Pulse Resp BP BP Pulse Ox 11/23/17 06:57 97.9 F 94 22 H 159/75 H 94 L 11/22/17 23:58 97.6 F 89 20 162/82 H 92 L 11/22/17 21:52 162/73 H Weight Admit Weight 65.68 kg Weight 65.68 kg I&O: 11/22/17 11/23/17 11/24/17 06:59 06:59 06:59 Intake Total 1354 725 Output Total 750 625 Balance 604 100 Result Diagrams: 11/21/17 04:40 11/21/17 04:40 <Ernie Lebron - Last Filed: 11/23/17 08:01> - Objective Vital Signs & Weight: Vital Signs (12 hours) Temp Pulse Resp BP BP Pulse Ox 11/23/17 08:56 162/73 H 11/23/17 06:57 97.9 F 94 22 H 159/75 H 94 L 11/22/17 23:58 97.6 F 89 20 162/82 H 92 L Weight Admit Weight 65.68 kg Weight 65.68 kg I&O: 11/22/17 11/23/17 11/24/17 06:59 06:59 06:59 Intake Total 1354 725 30 Output Total 750 625 Balance 604 100 30 Result Diagrams: 11/21/17 04:40 11/21/17 04:40 <Donovan Ryan - Last Filed: 11/23/17 11:03> Phys Exam - Physical Examination Constitutional: NAD HEENT: PERRLA, moist MMs Respiratory: no wheezing, clear to auscultation bilateral Cardiovascular: RRR, no significant murmur Gastrointestinal: soft, positive bowel sounds tender to palpation RUQ Musculoskeletal: no edema, pulses present chronic weakness on R side Psychiatric: normal affect Skin: no rash, cap refill <2 seconds <Ernie Lebron - Last Filed: 11/23/17 08:01> Dx/Plan (1) Acute cholecystitis due to biliary calculus Code(s): K80.00 - CALCULUS OF GALLBLADDER W ACUTE CHOLECYST W/O OBSTRUCTION Status: Acute (2) Sepsis Code(s): A41.9 - SEPSIS, UNSPECIFIED ORGANISM Status: Acute (3) Aphasia as late effect of cerebrovascular accident Code(s): I69.320 - APHASIA FOLLOWING CEREBRAL INFARCTION Status: Acute (4) Chronic atrial fibrillation Code(s): I48.2 - CHRONIC ATRIAL FIBRILLATION Status: Chronic (5) HTN (hypertension) Code(s): I10 - ESSENTIAL (PRIMARY) HYPERTENSION Status: Chronic Qualifiers: Hypertension type: essential hypertension Qualified Code(s): I10 - Essential (primary) hypertension - Plan Plan: # Hospice - family wants patient to go to 2 weeks of rehab then home on hospice 2/2 urinary retention - palliative has seen patient, wants to have home hospice with OT/PT - Spoke to CM this AM, will help make arrangements - patient is content with G-tube feeds # Sepsis 2/2 acute cholecystitis - vitals stable overnight, afebrile - cont flagyl/cefdinir - BP improved from admission # HTN - restarted home meds # Hx of CVA - residual deficits, g-tube # Afib - holding warfarin Diet: g-tube Fluids: tko PPx: scd Code: DNR/DNI <Ernie Lebron - Last Filed: 11/23/17 08:01> Attending Addendum - Attending Addendum Date/Time: 11/23/17 1102 I personally evaluated the patient and discussed the management with Dr. Muñoz I agree with the History, Examination, Assessment and Plan documented above with any addition or exceptions noted below. <Donovan Ryan - Last Filed: 11/23/17 11:03>
[2017-11-23] MEDS: Cefdinir 300 MG CAP PO SCH ×2 (08:56→20:25)
[2017-11-23] MEDS: Lisinopril 10 MG TAB PO SCH ×2 (08:56→20:25)
[2017-11-23] MEDS: metroNIDAZOLE 500 MG TAB PO SCH ×3 (08:56→20:25)
[2017-11-23] MEDS: Tamsulosin HCl 0.4 MG CAP FS SCH (08:59)
[2017-11-23] MEDS: Metoprolol Tartrate 50 MG TAB PO SCH (08:59)
[2017-11-23] MEDS: Famotidine/PF 20 mg/2ml Vial SLOW IVP SCH ×2 (10:40→20:25)
--- NOTE | 2017-11-24 08:04 | PDOC.FM ---
- Subjective Subjective: Patient resting comfortably this AM. LUC overnight. Palliative care team re- visited with patient yesterday. Materials submitted to [facility]. Hospice team to meet with patient and family today. - Objective Vital Signs & Weight: Vital Signs (12 hours) BP 11/23/17 20:25 149/70 H Weight Admit Weight 65.68 kg Weight 65.68 kg I&O: 11/23/17 11/24/17 11/25/17 06:59 06:59 06:59 Intake Total 725 1675 Output Total 625 1350 Balance 100 325 Result Diagrams: 11/21/17 04:40 11/21/17 04:40 <Ernie Lerbon - Last Filed: 11/24/17 08:01> - Objective Vital Signs & Weight: Vital Signs (12 hours) Temp Pulse Resp BP Pulse Ox 11/24/17 08:00 98.3 F 97 24 H 153/76 H 93 L Weight Admit Weight 65.68 kg Weight 65.68 kg I&O: 11/23/17 11/24/17 11/25/17 06:59 06:59 06:59 Intake Total 725 1675 Output Total 625 1350 Balance 100 325 Result Diagrams: 11/21/17 04:40 11/21/17 04:40 <Donovan Ryan - Last Filed: 11/24/17 10:02> Phys Exam - Physical Examination Constitutional: NAD HEENT: moist MMs Respiratory: clear to auscultation bilateral Cardiovascular: RRR, no significant murmur Gastrointestinal: soft, non-tender, no distention, positive bowel sounds Musculoskeletal: no edema, pulses present chronic R sided weakness Skin: cap refill <2 seconds <Ernie Lebron - Last Filed: 11/24/17 08:01> Dx/Plan (1) Acute cholecystitis due to biliary calculus Code(s): K80.00 - CALCULUS OF GALLBLADDER W ACUTE CHOLECYST W/O OBSTRUCTION Status: Acute (2) Sepsis Code(s): A41.9 - SEPSIS, UNSPECIFIED ORGANISM Status: Acute (3) Aphasia as late effect of cerebrovascular accident Code(s): I69.320 - APHASIA FOLLOWING CEREBRAL INFARCTION Status: Acute (4) Chronic atrial fibrillation Code(s): I48.2 - CHRONIC ATRIAL FIBRILLATION Status: Chronic (5) HTN (hypertension) Code(s): I10 - ESSENTIAL (PRIMARY) HYPERTENSION Status: Chronic Qualifiers: Hypertension type: essential hypertension Qualified Code(s): I10 - Essential (primary) hypertension - Plan Plan: # Hospice - original plan: family wants patient to go to 2 weeks of rehab then home on hospice 2/2 urinary retention - Updated: family seriously considering taking patient home with hospice, this seems to be a good option, hospice team to meet with patient/family today - patient is content with G-tube feeds as opposed to comfort feeds # Sepsis 2/2 acute cholecystitis- resolved - vitals stable overnight, afebrile - cont flagyl/cefdinir # HTN - restarted home meds # Hx of CVA - residual deficits, g-tube # Afib - holding warfarin Diet: g-tube Fluids: tko PPx: scd Code: DNR/DNI <Ernie Lebron - Last Filed: 11/24/17 08:01> Attending Addendum - Attending Addendum Date/Time: 11/24/17 1001 I personally evaluated the patient and discussed the management with Dr. Lebron I agree with the History, Examination, Assessment and Plan documented above with any addition or exceptions noted below. <Donovan Ryan - Last Filed: 11/24/17 10:02>
[2017-11-24 08:43] VITALS: TEMP 98.3
[2017-11-24 11:21] VITALS: BP 149/70
[2017-11-24] MEDS: Famotidine/PF 20 mg/2ml Vial SLOW IVP SCH (11:21)
[2017-11-24] MEDS: Cefdinir 300 MG CAP PO SCH (11:21)
[2017-11-24] MEDS: Metoprolol Tartrate 50 MG TAB PO SCH (11:21)
[2017-11-24] MEDS: metroNIDAZOLE 500 MG TAB PO SCH ×2 (11:21→15:44)
[2017-11-24] MEDS: Lisinopril 10 MG TAB PO SCH (11:21)
[2017-11-24] MEDS: Tamsulosin HCl 0.4 MG CAP FS SCH (11:21)
--- NOTE | 2017-11-25 12:33 | DIS-2 ---
DATE OF ADMISSION: 11/20/2017 DATE OF DISCHARGE: 11/24/2017 RESIDENT: Dr. Ernie Lebron ADMITTING ATTENDING: Dr. Kaila Shi DISCHARGE ATTENDING: Dr. Donovan Ryan CONSULTATIONS: Palliative Care, Hospice, Pulmonology. PROCEDURES: Chest x-ray showing small pleural effusion at the bases. PRIMARY DIAGNOSES: 1. Sepsis secondary to cholecystitis. 2. History of right-sided cerebrovascular accident. SECONDARY DIAGNOSES: Hypertension, atrial fibrillation, aphasia. DISCHARGE MEDICATIONS: DuoNeb, DISCONTINUED MEDICATIONS: Discontinued all other medications as the patient is going home with hospi ce, comfort medications only. 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 She also has chronic atrial fibrillation. She presented to ER with chief complaint of tachycardia per SNF staff. EMS reports fever. The patient was ultimately found to have acute cholecystitis. T he patient and family stated that they were not interested in surgical options and so the patient was treated medically with antibiotics. Over the course of the stay, the patient's sepsis resolved. She was given fluid and antibiotics as n eeded. Ultimately, a decision was made between the patient and family to send the patient home with hospice. Rehab facility option was explored, but patient was ultimately turned down from rehab and t he decision was made with family that it was really in the patient's best interest to go home on hosp ice. Towards the end of the stay of the patient was becoming increasingly sleepy, sleeping more and more during the day and appeared to be desiring comfort care per her family. A decision was made to send the patient home with [facility], accepting physician is Dr. Braun. I very much appreciate their help. DISPOSITION: Guarded. DISCHARGE INSTRUCTIONS: 1. Location: Home. 2. Diet: Comfort feeds. 3. Activity: As tolerated. 4. Followup: Follow up in [facility] care.
== END 2017-11-24 17:44 | disposition hospice, home (50) | DRG 872 ==
LOC: ERS 00:42 → IMCU/EMU 06:15 → ONC 11-21 18:42
PROVIDERS: ADMIT Family Medicine; ATTEND Family Medicine
PROC: 3E0G76Z Introduction of Nutritional Substance into Upper GI, Via Natural or Artificial Opening (ICD-10-PCS; principal; 2017-11-21)
DX: A41.9 Sepsis, unspecified organism (principal); I69.351 Hemiplegia and hemiparesis following cerebral infarction affecting right dominant side; K80.00 Calculus of gallbladder with acute cholecystitis without obstruction; I50.32 Chronic diastolic (congestive) heart failure; I69.320 Aphasia following cerebral infarction; Z66 Do not resuscitate; I48.2 Chronic atrial fibrillation; I69.391 Dysphagia following cerebral infarction; Z93.1 Gastrostomy status; Z51.5 Encounter for palliative care; Z74.01 Bed confinement status; I11.0 Hypertensive heart disease with heart failure; Z79.01 Long term (current) use of anticoagulants; Z88.0 Allergy status to penicillin; Z87.891 Personal history of nicotine dependence; Z95.0 Presence of cardiac pacemaker
CPT/HCPCS: 36415; 36556; 51702; 71045; 76705; 80053; 81003; 81015; 82330; 82803; 83605; 85025; 85610; 85730; 86850; 86900; 86901; 87040; 87086; 87804; 93005; 96361; 96365; 96367; A4353; G8978-GP-CM; G8979-GP-CL; G8987-GO-CK; G8988-GO-CJ; G8996-GN-CM; G8997-GN-CL; J0692; J1885; J3370; J3430; J7050; S0028

== ENCOUNTER 2017-12-27 16:19 | Emergency (ER) | payer MEDICARE, BC ==
[2017-12-27 17:29] LABS: #Basophils 0.1 thou/uL (0.0-0.2); #Eosinphils 0.3 thou/uL (0.0-0.7); #Lymphocytes 2.7 thou/uL (1.20-3.40); #Monocytes 0.8 thou/uL (0.11-0.59); #Neutrophils 4.8 thou/uL (1.40-6.50); %Basophils 0.9 % (0.0-1.0); %Eosinophils 3.7 % (0.0-10.0); %Lymphocytes 31.3 % (21.0-51.0); %Monocytes 8.9 % (0.0-10.0); %Neutrophils 55.2 % (42.0-75.0); Mean Corpuscular HGB CONC 31.6 g/dL (32.0-36.0); Mean Corpuscular Hemoglobin 29.4 pg (27.0-31.0); Platelet Count 244 thou/uL (130-400); Red Blood Cell (RBC) Count 4.07 mill/uL (4.20-5.40); White Blood Cell (WBC) Count 8.6 thou/uL (4.8-10.8)
[2017-12-27 17:34] LABS: Prothrombin Time 39.2 SEC (12.0-14.7)
[2017-12-27 17:35] LABS: PTT 65.5 SEC (22.9-36.1)
== END 2017-12-27 19:33 | disposition home or self-care (01) ==
LOC: ERS 16:19
DX: S51.811A Laceration without foreign body of right forearm, initial encounter (principal); I10 Essential (primary) hypertension; I48.91 Unspecified atrial fibrillation; Z86.73 Personal history of transient ischemic attack (TIA), and cerebral infarction without residual deficits; Z79.01 Long term (current) use of anticoagulants; Z79.899 Other long term (current) drug therapy; Z87.891 Personal history of nicotine dependence; W04.XXXA Fall while being carried or supported by other persons, initial encounter
CPT/HCPCS: 36415; 85025; 85610; 85730; 99283